=== PATIENT | female | born 1925 | race Caucasian/White ===

== ENCOUNTER → 2016-06-02 | Outpatient (CLI) | payer BC ==
[~2016-06-02] MED LIST: ACET-1256 PO; ACET325T96 PO; ASPI81TA28 PO; CEPH500C PO; CHOL20007 PO; CIPR0.3S OP; COEN1CAP28 PO; DFL100 PO; DOCU100C PO; HYDR2.5C37 TOP; IBUP-1050 PO; LEVO1TAB35 PO; LISI-729 PO; LPT/40 PO; NITR0.4S UT; POLY335019 PO; PSYL48.59 PO; SYN50 PO; VNTHFA/IN INH
== END | disposition home or self-care (01) ==
LOC: C.LABFOXMH 09:21
PROVIDERS: ATTEND Internal Medicine
DX: E78.00 Pure hypercholesterolemia, unspecified (principal)

== ENCOUNTER → 2016-07-22 | Outpatient (CLI) | payer BC ==
[2016-07-22 09:28] LABS: HEMATOCRIT 40.2 % (37-47); MEAN CELL VOLUME 94.4 fL (80-100); MEAN CORPUSCULAR HEMOGLOBIN 32.4 pg (25-34); MEAN CORPUSCULAR HGB CONC 34.3 g/dl (32-36); PLATELET COUNT 280 K/uL (130-400); RED BLOOD COUNT 4.26 M/uL (4.2-5.4); WHITE BLOOD COUNT 5.36 K/uL (4.8-10.8)
[2016-07-22 09:34] LABS: BLOOD UREA NITROGEN 13 mg/dl (7-18); GLUCOSE 88 mg/dl (70-99)
[2016-07-22 09:35] LABS: CALCIUM 9.3 mg/dl (8.5-10.1); CARBON DIOXIDE 28 mmol/L (21-32); CHLORIDE 106 mmol/L (98-107); POTASSIUM 4.2 mmol/L (3.5-5.1); SODIUM 140 mmol/L (136-145)
[2016-07-22 09:37] LABS: PROTHROMBIN TIME (PATIENT) 10.3 SECONDS (9.0-12.0)
== END | disposition home or self-care (01) ==
LOC: C.LABFOXMH 08:55
PROVIDERS: ATTEND Internal Medicine Cardiovascular Disease
DX: Z01.818 Encounter for other preprocedural examination (principal)

== ENCOUNTER 2016-07-24 06:25 | Observation (INO) | payer BC ==
[~2016-07-24] VITALS: Ht 152.4 cm; Wt 65.6 kg
[~2016-07-24 06:25] MED LIST changes: -ACET-1256 PO; -CEPH500C PO; -CIPR0.3S OP; +CLINDAMYCIN 600 MG/54 ML D5W IV SCH; -DFL100 PO; -DOCU100C PO; -HYDR2.5C37 TOP; -IBUP-1050 PO; +LACTATED RINGER'S 1000ML 1,000 ML IV SCH; -LEVO1TAB35 PO; -POLY335019 PO; -PSYL48.59 PO
[2016-07-24] MEDS ORDERED: IBUP-1050 PO (07:03)
[2016-07-24] MEDS ORDERED: HYDR2.5C37 TOP (07:03)
[2016-07-24] MEDS ORDERED: DOCU100C PO (07:03)
[2016-07-24] MEDS ORDERED: POLY335019 PO (07:03)
[2016-07-24 07:06] VITALS: BP 176/69; PULSE 59; TEMP 36.5; O2SAT 95; BMI 27.0
[2016-07-24] MEDS ORDERED: LIDOCAINE HCL 1% 20 ML VIAL ONE ×2 (07:40→10:37)
--- NOTE | 2016-07-24 09:30 | Procedure Note ---
Pre-Mod Sedation Assessment General Date of Moderate Sedation: Jul 24, 2016. Vital Signs: Vital Signs Past 12 Hours Date Time Temp Pulse Resp B/P Pulse Ox O2 Delivery O2 Flow Rate FiO2 07/24/16 07:06 36.5 59 20 176/69 95 Room Air Review Cardiovascular: regular rate, rhythm Abdomen: normal bowel sounds Lungs: lungs clear Pre-Sedation Airway Assessment Oral Cavity: WNL Smoking Status: Former Smoker Procedure Planning Contraindications-for Mod Sed: None Yes Notes The planned sedation has been discussed with the patient and consent obtained. I have identified the patient, determined the appropriateness of sedation and have assessed the patient immediately prior to the procedure. All medicine(s) and interventions are by my order.
[2016-07-24] MEDS ORDERED: MIDAZOLAM HCL 5 MG/ML 1 ML VIAL ONE (09:33)
[2016-07-24] MEDS ORDERED: FENTANYL CITRATE INJ 50 MCG/1 ML 2 ML VIAL ONE (09:33)
[2016-07-24] MEDS ORDERED: BACITRACIN OINT 0.9 GM PKT ONE (10:48)
--- NOTE | 2016-07-24 11:06 | Procedure Note ---
Post-Mod Sedation Assessment General Date of Moderate Sedation Jul 24, 2016. Vital Signs: Vital Signs Past 12 Hours Date Time Temp Pulse Resp B/P Pulse Ox O2 Delivery O2 Flow Rate FiO2 07/24/16 07:06 36.5 59 20 176/69 95 Room Air Review - Discharge Criteria Vital Signs Stable: Yes Alert/Oriented/Conversant: Yes Returned to Baseline Mental St: Yes Nausea Absent/Minimal: Yes Pain/Discomfort/Absent/Minimal: Yes Normal/Baseline Respirations: Yes Active Bleeding?: No
[2016-07-24] MEDS ORDERED: METOPROLOL TARTRATE 1 MG/ML VIAL ONE (11:07)
--- NOTE | 2016-07-24 11:08 | Cardiology Procedure Brief Nt ---
Preliminary Cardiology Note Procedure Date Jul 24, 2016. Pre-Procedure Diagnosis sick sinus syndrome Post-Procedure Diagnosis same Procedure(s) Performed Left subclavian venogram Dual chamber pacemaker implantation Loop recorder explantation [employer] Dr. Zamorano Dehydrogenation Supervisor(s) none Estimated Blood Loss 30 cc Preliminary Findings Good lead position, excellent measurements Recommendations Monitor overnight Specimens Loop recorder, return to Medtronic Anesthesia local with sedation Complication(s) None Disposition PCU
[2016-07-24] MEDS ORDERED: ACETAMINOPHEN 325 MG TAB PO PRN (11:15)
[2016-07-24] MEDS ORDERED: NITROGLYCERIN 0.4 MG SL PER TAB CHARGE UT PRN (11:15)
[2016-07-24] MEDS ORDERED: METOPROLOL SUCC 50MG EXT REL TAB PO ONE (11:45)
[2016-07-24 11:50] VITALS: BP 192/79; PULSE 60; TEMP 36.8; O2SAT 98; Ht 152.4 cm; Wt 65.6 kg
[2016-07-24] MEDS: ACETAMINOPHEN 325 MG TAB PO SCH ×3 (12:01→19:59)
[2016-07-24] MEDS: KETOROLAC TROMETHAMINE 10 MG TAB PO PRN ×2 (12:02→19:58)
[2016-07-24] MEDS ORDERED: IV FLUIDS COMPLETED PRN (12:15)
[2016-07-24 15:34] VITALS: BP 141/87; PULSE 60; O2SAT 96
[2016-07-24 16:00] VITALS: O2SAT 93
[2016-07-24] MEDS: CLINDAMYCIN IV 600 MG in DEXTROSE 5% ADD-VANTAGE 50ML 50 ML IV SCH ×2 (16:00→23:31)
--- NOTE | 2016-07-24 16:00 | OPERATIVE REPORT ---
DATE OF OPERATION: 07/24/2016 AMBULATORY OPERATIVE REPORT PREOPERATIVE DIAGNOSES: 1. Symptomatic bradycardia. 2. Loop recorder in place. POSTOPERATIVE DIAGNOSIS: Same. PROCEDURE: 1. Left subclavian venogram. 2. Dual chamber pacemaker implantation. 3. Loop recorder explantation. SURGEON: Marcus Zamorano M.D. ANESTHESIA: Local with sedation. HISTORY: This is an 89-year-old woman who has a history of multiple episodes of syncope spanning many years. She also has a history of coronary artery disease and coronary artery bypass surgery with normal left ventricular function. She has had extensive evaluation including event monitoring and a loop recorder was implanted 01/10/2014. She has had various episodes of syncope while the monitor has been in place, they have also been witnessed by various family members including her son who is a physician in [place] and her daughter who accompanies her to the office. It appears that she gets lightheaded and then passes out briefly, and awakes with no sequelae. She has not shown any arrhythmia on her loop recorder, but she has had a consistent low heart rate at times including heart rates in the high 30s. At one of her syncopal events, her son witnessed it and felt that her heart rate was slow, but perhaps not slow enough to trigger the event monitor and she has not been able to trigger the recorder herself. She is therefore brought to the laboratory for pacemaker implantation in hopes that her syncopal events are due to relative bradycardia. After obtaining informed consent for the procedure, she was brought to the laboratory on the morning of 07/24/2016 being n.p.o. after midnight. She was identified in the laboratory, prepped and draped in standard sterile manner for a left-sided pacemaker implantation. The left prepectoral region was anesthetized with 1% lidocaine local anesthetic and left subclavian venipuncture was attempted by percutaneous technique. Venous access was not obtained by this method, therefore, dye was injected via the left arm IV site in order to opacify the left subclavian vein. Once identified, left subclavian venipuncture was performed by percutaneous technique and a guidewire placed through the left subclavian vein into the superior vena cava. The area was further infiltrated with 1% lidocaine local anesthetic and a 5 cm incision was made parallel to the left clavicle and 2 cm below it and carried down to the anterior pectoralis fascia. A pacemaker pocket was formed by blunt dissection anterior to the pectoralis fascia and a bacitracin-soaked sponge (50,000 units in 50 mL normal saline solution) was placed in the pocket. An 8-Yoruba Medtronic introducer was placed over the guidewire into the left subclavian vein, the dilator and guidewire were removed and a bipolar active fixation steroid-tipped ventricular lead was advanced through introducer into the superior vena cava. The guidewire was placed through the introducer and introducer stripped away from lead and guidewire. Another 8-Yoruba Medtronic lead introducer was placed over the guidewire into the left subclavian vein, the dilator and guidewire were removed and a bipolar active fixation steroid-tipped atrial lead was advanced through the introducer into the superior vena cava. The guidewire was placed through the introducer and introducer stripped away from lead and guidewire. Using a curved stylette, the ventricular lead was advanced through the right ventricular outflow tract into the pulmonary artery and then using a straight stylette was positioned in the right ventricular apex. Once in position, the ventricular pacing threshold was evaluated in bipolar configuration at a pulse width of 0.4 milliseconds. The final pacing threshold was 0.4 volts, 5-volt lead impedance was 810 ohms and R-waves were sensed at 25.2 millivolts. Diaphragmatic pacing was not present with a 10 volt bipolar output. The atrial lead was positioned in the region of the atrial appendage and the screw extended fixing the lead in position. Atrial pacing threshold was evaluated in bipolar configuration at a pulse width of 0.4 milliseconds. Pacing threshold was 0.8 volts, 5-volt lead impedance was 655 ohms and P-waves were sensed at 1.8 millivolts. Diaphragmatic pacing was not present with a 10 volt bipolar output. Once leads were in position, they were attached to the anterior pectoralis fascia using 2 sutures of 2-0 silk around each lead collar. The bacitracin-soaked sponge was removed from the pocket, the guidewire was removed from left subclavian vein and hemostasis was obtained. The pacemaker (Biotronik Eluna) was attached to the leads and found to be functioning normally. It was placed in the pocket with the leads coiled beneath it and the incision was closed with a running double subcutaneous closure of 3-0 V-Loc absorbable suture. The skin was then closed with a running subcuticular closure of 4-0 V-Loc absorbable suture. Bacitracin ointment was placed on the incision and a pressure dressing applied. Once the incision was closed for the pacemaker implantation, the loop recorder site was anesthetized with 1% lidocaine local anesthetic and a 1.5 cm incision was made and carried down to the loop recorder. The loop recorder was dissected free of tissue and explanted. This incision was closed with a subcutaneous closure of 4-0 V-Loc absorbable suture followed by a running subcuticular closure of 4-0 V-Loc absorbable suture. Pressure dressing was applied. The patient tolerated the procedure well, there were no complications and estimated blood loss was 30 mL. The patient was transferred to the telemetry unit for monitoring. The atrial lead is a Biotronik Solia S45, serial #[id number] and is a bipolar active fixation steroid-tipped, MRI compatible pacing lead. The ventricular lead is a Biotronik Solia S53, serial #[id number] and is a bipolar active fixation steroid-tipped MRI compatible atrial lead. The pacemaker is a Biotronik Eluna 8DR-T, serial #[id number]. The device was reprogrammed in the laboratory to final settings. JUAN
[2016-07-24 19:12] VITALS: BP 152/82; PULSE 59; TEMP 36.9; O2SAT 94
[2016-07-24 23:47] VITALS: BP 159/83; PULSE 60; TEMP 36.8; O2SAT 94
[2016-07-25] MEDS: KETOROLAC TROMETHAMINE 10 MG TAB PO PRN (03:14)
[2016-07-25 03:21] VITALS: BP 174/79; PULSE 60; TEMP 36.8; O2SAT 94
[2016-07-25 04:06] VITALS: BP 167/85
--- NOTE | 2016-07-25 06:38 | DIAGNOSTIC IMAGING REPORT ---
CHEST 2 VIEWS ROUTINE CLINICAL HISTORY: Chest x-ray status post pacemaker placement COMPARISON STUDY: 12/25/2015 FINDINGS: There are postsurgical changes of midline sternotomy. There is a left subclavian dual-chamber central venous pacemaker present. No pneumothorax is visualized. The heart is normal in size. There is interstitial thickening of the lung bases. There is no lobar consolidation. No pleural effusions are visualized.[Advanced degenerative changes are present within the shoulders. IMPRESSION: No evidence of pneumothorax status post placement of a left subclavian dual-chamber central venous pacemaker. Electronically signed by: Víctor Steinberg M.D. 07/25/2016 6:36 AM Dictated Date/Time: 07/25/2016 6:34 AM
[2016-07-25 07:45] VITALS: BP 177/80; PULSE 60; TEMP 37.1; O2SAT 90
[2016-07-25] MEDS: CLINDAMYCIN IV 600 MG in DEXTROSE 5% ADD-VANTAGE 50ML 50 ML IV SCH ×2 (08:00→09:22)
--- NOTE | 2016-07-25 08:51 | Discharge Instructions ---
Discharge Instructions Date of Service Jul 25, 2016. Admission Symptomatic Bradycardia Discharge Discharge Diagnosis / Problem: S/P Dual-chamber pacemaker implantation Discharge Goals Goal(s): Improve disease control Activity Recommendations Activity Limitations: as noted below . Instructions / Follow-Up Instructions / Follow-Up ACTIVITY RECOMMENDATIONS: * Do not raise affected arm over head for 2 weeks. SPECIAL CARE INSTRUCTIONS: * If bleeding occurs, apply direct pressure to area for 5 minutes. * Call your doctor if you have severe pain, fever, drainage or bleeding at site. * Keep dressing on and dry for 48 hours then remove. * Keep any scheduled doctor's appointment. * Implant Card - hand held device with website information given. SKIN IRRITATION: * You may experience some redness and/or swelling in the area where radiation was administered. If any skin irritation occurs, please contact your family physician. FOLLOW UP VISIT: 07/28/16 @ 2:00 pm for incision check Current Hospital Diet Patient's current hospital diet: AHA Diet (Heart Healthy) Discharge Diet Recommended Diet: AHA Diet (Heart Healthy) Pending Studies Studies pending at discharge: no Medical Emergencies . Who to Call and When: Medical Emergencies: If at any time you feel your situation is an emergency, please call 911 immediately. . Non-Emergent Contact Non-Emergency issues call your: [facility] . . "Provider Documentation" section prepared by Ángela Scott. . VTE Core Measure Inpt VTE Proph given/why not?: Treatment not indicated
[2016-07-25] MEDS ORDERED: ATORVASTATIN 40 MG TAB PO SCH (09:00)
[2016-07-25] MEDS ORDERED: DOCUSATE SODIUM 100 MG CAP PO SCH (09:00)
[2016-07-25] MEDS ORDERED: ASPIRIN 81 MG ECTAB PO SCH (09:00)
[2016-07-25] MEDS ORDERED: LISINOPRIL 5 MG TAB PO SCH (09:00)
[2016-07-25] MEDS ORDERED: METOPROLOL SUCC 50MG EXT REL TAB PO SCH (09:00)
[2016-07-25] MEDS: ACETAMINOPHEN 325 MG TAB PO SCH (09:22)
[2016-07-25] MEDS ORDERED: NURSING VERBAL MED ORDER ONE (10:15)
[2016-07-25] MEDS ORDERED: CLINDAMYCIN HCL 150 MG CAP PO ONE (10:15)
--- NOTE | 2016-07-25 10:59 | Discharge Summary ---
Discharge Summary Admission Date: Jul 24, 2016 at 11:13 Discharge Date: Jul 25, 2016 Discharge Disposition: Home Primary Diagnosis: Sinus bradycardia Secondary Diagnoses/Problems: Medical Problems: (1) Palpitations Status: Acute Surgical Problems: (1) S/P quadruple vessel bypass Status: Resolved Procedures: Loop recorder explantation. Dual-chamber pacemaker implantation. Discharge Instructions Last Recorded Wt (Kilograms): 65.600 Activity Recommendations: limitations as noted below Allergies: Coded Allergies: Penicillins (Verified Allergy, Unknown, UNKNOWN, 07/25/16) Additional Instructions: ACTIVITY RECOMMENDATIONS: * Do not raise affected arm over head for 2 weeks. SPECIAL CARE INSTRUCTIONS: * If bleeding occurs, apply direct pressure to area for 5 minutes. * Call your doctor if you have severe pain, fever, drainage or bleeding at site. * Keep dressing on and dry for 48 hours then remove. * Keep any scheduled doctor's appointment. * Implant Card - hand held device with website information given. SKIN IRRITATION: * You may experience some redness and/or swelling in the area where radiation was administered. If any skin irritation occurs, please contact your family physician. FOLLOW UP VISIT: Keep any scheduled doctor appointments. Special Care: Call your doctor if: * Temperature above 101 degrees * Pain not relieved by pain medicine ordered * There is increased drainage or redness from any incision * You have any unanswered questions or concerns. Avoid all tobacco products. If you need help to stop smoking, call [place]'s FREE QUITLINE at . This is a free call. Admission HPI This is an 89-year-old woman who has a history of multiple episodes of syncope spanning many years. She also has a history of coronary artery disease and coronary artery bypass surgery with normal left ventricular function. She has had extensive evaluation including event monitoring and a loop recorder was implanted 01/10/2014. She has had various episodes of syncope while the monitor has been in place, they have also been witnessed by various family members including her son who is a physician in [place] and her daughter who accompanies her to the office. It appears that she gets lightheaded and then passes out briefly, and awakes with no sequelae. She has not shown any arrhythmia on her loop recorder, but she has had a consistent low heart rate at times including heart rates in the high 30s. At one of her syncopal events, her son witnessed it and felt that her heart rate was slow, but perhaps not slow enough to trigger the event monitor and she has not been able to trigger the recorder herself. She is therefore brought to the laboratory for pacemaker implantation in hopes that her syncopal events are due to relative bradycardia. Admission Physical Exam Constitutional: Alert, cooperative and in no distress. HEENT: Unremarkable Neck: No jugular venous distention, carotid pulses are normal and equal bilaterally without bruits. Pulmonary: Clear to auscultation bilaterally. Cardiac: Regular rhythm with no murmur, gallop or rub. Abdomen: Soft, nontender with normal bowel sounds. Extremities: No edema. Distal pulses intact. Neurologic: No focal findings. Gait is steady. Skin: The device site is well-healed without erythema, swelling or tenderness. No rash, ecchymoses or petechiae. Hospital Course Patient is an 89-year-old female with symptomatic bradycardia documented by loop recorder who underwent loop recorder explantation and dual-chamber pacemaker implantation with Dr. Zamorano on 07/24/16. She tolerated the procedure well. Device check the following day showed excellent sensing and pacing characteristics. CXR showed good lead placement and no evidence of pneumothorax. She was deemed stable for discharge home on 07/25/16. She will have follow-up in 3 days for incision check and in 1 month for device check. Total time spent on discharge = This includes examination of the patient, discharge planning, medication reconciliation, and communication with other providers.
[2016-07-25 11:03] VITALS: BP 177/80; PULSE 60; TEMP 37.1; O2SAT 90
--- NOTE | 2016-07-26 07:07 | Cardiology Follow-Up ---
Subjective Date of Service: Jul 25, 2016. Pt evaluation today including: conversation w/ patient, conversation w/ family , physical exam, lab review, review of studies, review of inpatient medication list History of Present Illness Patient feels well postop day #1 after pacemaker implantation. No significant discomfort. Social History Smoking Status: Never Smoker History of Alcohol Use: Yes (occasional beer) Review of Systems Respiratory: No shortness of breath Cardiac: No chest pain Objective Last Recorded Weight-Kilograms: 65.600 Physical Exam Constitutional: Level of Distress: NAD Lungs: Auscultation: breath sounds normal Cardiovascular: Heart Auscultation: RRR, no rubs Pacemaker site is clean and dry, no drainage. Slight hematoma and ecchymosis present. Minimal tenderness. Data Imaging: Chest x-ray shows good lead position, no pneumothorax EKG: Atrial pacing throughout, intact AV conduction. Telemetry reviewed: Appropriate pacemaker function, predominantly atrial pacing. Pacemaker evaluation: Excellent pacing and sensing characteristics. Atrial pacing 97% of the time appropriately. Assessment and Plan #1. Postop day #1: Doing well postop day #1. The site looks good with minor ecchymosis and a slight hematoma which should resolve. The pacer is functioning well and leads look good on x-ray. Stable for discharge for outpatient surgical follow-up. #2. Hypertension: Her blood pressure has been quite elevated, she could not tolerate beta blockers in the past however now with the pacemaker in place she should be able to tolerate them as she is almost entirely atrially paced. We will continue metoprolol as an outpatient. Procedures: Loop recorder explantation. Dual-chamber pacemaker implantation.
[2016-11-22] MEDS ORDERED: ACET-1256 PO (21:29)
[2016-11-22] MEDS ORDERED: CEPH500C PO (21:40)
[2016-11-22] MEDS ORDERED: CIPR0.3S OP (21:40)
[2016-11-24] MEDS ORDERED: DFL100 PO (12:49)
== END 2016-07-25 13:23 | disposition home or self-care (01) ==
LOC: ENRESERVDT → ENRESERVTM → C.ACU 06:25 → C.2T 11:13
PROVIDERS: ADMIT Internal Medicine Cardiovascular Disease; ATTEND Internal Medicine Cardiovascular Disease
DX: R00.1 Bradycardia, unspecified (principal); Z95.818 Presence of other cardiac implants and grafts; R55 Syncope and collapse; I25.10 Atherosclerotic heart disease of native coronary artery without angina pectoris; I10 Essential (primary) hypertension; I73.9 Peripheral vascular disease, unspecified; Z95.1 Presence of aortocoronary bypass graft; Z86.718 Personal history of other venous thrombosis and embolism; Z86.018 Personal history of other benign neoplasm; Z98.49 Cataract extraction status, unspecified eye; Z88.0 Allergy status to penicillin; Z90.710 Acquired absence of both cervix and uterus; Z98.890 Other specified postprocedural states; Z79.82 Long term (current) use of aspirin; Z79.899 Other long term (current) drug therapy

== ENCOUNTER 2016-07-30 14:17 | Emergency (ER) | payer BC ==
[~2016-07-30] VITALS: Ht 152.4 cm; Wt 64.0 kg
[~2016-07-30 14:17] MED LIST changes: -CLINDAMYCIN 600 MG/54 ML D5W IV SCH; +DOCU100C PO; +HYDR2.5C37 TOP; +IBUP-1050 PO; -LACTATED RINGER'S 1000ML 1,000 ML IV SCH; +POLY335019 PO; -SYN50 PO; -VNTHFA/IN INH
[2016-07-30 14:23] VITALS: Ht 152.4 cm; Wt 64.0 kg
--- NOTE | 2016-07-30 14:45 | EMERGENCY ROOM VISIT NOTE ---
History Report prepared by Parmjit: Alejandro Pierre Under the Supervision of: Dr. Ranulfo Avilez D.O. First contact with patient: 14:26 Chief Complaint: SHORTNESS OF BREATH Stated Complaint: SOB/DIZZY [facility] Nursing Triage Summary: pt to the ED from [facility] office via EMS with c/o SOB there but since EMS arrival it has resolved and pt c/o feeling tired shakey. no c/o pain pt had pacemaker placed 1 week ago and has extensive bruising to the left upper chest History of Present Illness The patient is an 89 year old female who presents to the Emergency Room via EMS from [facility] with complaints of resolved dizziness that started prior to arrival this morning. She had a pacemaker placed 6 days ago, and has been recovering from that and using Tylenol for the pain. The patient notes that she has been shaky for the past week when first waking up in the mornings, but the shakiness is usually quickly resolved after eating breakfast. Today, the patient says that she woke up shaky as per usual, but the shakiness persisted for a few hours. While walking to the [facility] with her walker, she started to feel dizzy, hot, sweaty, and very thirsty. The patient does note that she has had a bit of shortness of breath on exertion today as well. She decided to go to the [facility] and saw a nurse practitioner there, who sent the patient here for evaluation. Currently, the patient says that she feels fine but is still thirsty. Her symptoms have mostly resolved. She denies any chest pain, abdominal pain, current shortness of breath, nausea, vomiting, fevers, or leg swelling. Source of History: patient Onset: Prior to arrival this morning Position: other (global - dizziness) Timing: resolved Associated Symptoms: + SOB (denies current sob), + diaphoresis, No abdominal pain, No chest pain, No fevers, No nausea, No vomiting Note: Associated symptoms: Shaky, thirsty, hot this morning. Denies leg swelling. Review of Systems See HPI for pertinent positives & negatives. A total of 10 systems reviewed and were otherwise negative. Past Medical & Surgical Surgical Problems: (1) S/P quadruple vessel bypass Family History Family history omitted secondary to patient's advanced age. Social History Smoking Status: Former Smoker Alcohol Use: none Drug Use: none Marital Status: single Housing Status: assisted living Occupation Status: retired Current/Historical Medications Scheduled Atorvastatin (Lipitor), 40 MG PO QAM Cholecalciferol (Vitamin D3), 2,000 UNIT PO DAILY Coenzyme Q10 (Ubidecarenone) (Co Q10), 200 MG PO BID Docusate Sodium (Stool Softener), 100 MG PO DAILY Hydrocortisone 2.5% (Rectal) (Anusol-Hc 2.5%), 1 APPLN TOP BID Ibuprofen (Advil), 200 MG PO DIRECTED Levofloxacin (Levaquin), 750 MG PO DAILY Lisinopril (Zestril), 5 MG PO QAM Nitroglycerin (Nitrostat), 0.4 MG UT PRN Scheduled PRN Acetaminophen Tab (Tylenol), 325 MG PO QID PRN for Pain Psyllium (Metamucil), 1 DOSE PO DAILY PRN for Constipation Allergies Coded Allergies: Penicillins (Verified Allergy, Unknown, UNKNOWN, 07/30/16) Physical Exam Vital Signs Date Time Temp Pulse Resp B/P Pulse Ox O2 Delivery O2 Flow Rate FiO2 07/30/16 19:54 84 18 207/146 93 Room Air 07/30/16 19:11 81 20 211/117 100 Room Air 07/30/16 18:43 36.4 84 22 173/99 07/30/16 17:23 69 15 189/81 96 Room Air 07/30/16 15:59 64 16 148/90 98 Room Air 07/30/16 14:52 70 07/30/16 14:50 97 Room Air 07/30/16 14:23 36.5 68 16 191/66 95 Room Air Physical Exam GENERAL: Patient is awake, alert, and in no acute distress. Patient is resting comfortably and showing no signs of anxiety EYES: The conjunctivae are clear. The pupils are round and reactive. EARS, NOSE, MOUTH AND THROAT: The nose is without any evidence of any deformity. Mucous membranes are moist tongue is midline NECK: The neck is nontender and supple. RESPIRATORY: Normal respiratory effort is noted there is no evidence of wheezing rhonchi or rales CARDIOVASCULAR: Regular rate and rhythm noted there no murmurs rubs or gallops normal S1 normal S2 GASTROINTESTINAL: The abdomen is soft. Bowel sounds are present in all quadrants. Abdomen is nontender MUSCULOSKELETAL/EXTREMITIES: There is no evidence of gross deformity full range of motion is noted in the hips and shoulders SKIN: Significant ecchymosis and swelling over left breast at recent pacemaker insertion site. No erythema or dehiscence appreciated. Pulses symmetric in both upper extremities. NEUROLOGIC: Patient is awake alert and oriented x3 . Medical Decision & Procedures ER Provider Diagnostic Interpretation: X-ray results as stated below per interpretation by me and the radiologist. SINGLE VIEW CHEST CLINICAL HISTORY: Atypical chest pain. FINDINGS: An AP, portable, upright chest radiograph is compared to study dated 07/25/2016. The examination is degraded by portable technique and patient rotation. A 2-lead cardiac pacemaker is unchanged in position and partially obscures the left lung base. The patient is status post midline sternotomy. The heart is enlarged and there is atherosclerotic calcification of the thoracic aorta. The pulmonary vasculature is noncongested. Chronic interstitial thickening is unchanged from previous. There is patchy airspace consolidation at the left lung base. The right lung appears clear noting basilar atelectasis. No large pleural effusion or pneumothorax is seen. The skeletal structures are osteopenic. Advanced arthritic change is noted in the shoulders. Surgical clips are seen in the left lower neck. IMPRESSION: 1. Cardiomegaly and cardiac pacemaker. There is no radiographic evidence of congestive failure. 2. There is patchy airspace consolidation at the left lung base, new from 07/25/2016. Correlate clinically for evidence of developing pneumonia/aspiration pneumonitis. Radiographic follow-up to resolution is recommended. Electronically signed by: Macario Mathews M.D. 07/30/2016 3:05 PM Dictated Date/Time: 07/30/2016 3:03 PM Laboratory Results 07/30/16 14:45 Red Blood Count 4.33, Mean Corpuscular Volume 94.5, Mean Corpuscular Hemoglobin 31.2, Mean Corpuscular Hemoglobin Concent 33.0, Mean Platelet Volume 9.4, Neutrophils (%) (Auto) 72.4, Lymphocytes (%) (Auto) 17.0, Monocytes (%) (Auto) 8.5, Eosinophils (%) (Auto) 1.4, Basophils (%) (Auto) 0.5, Neutrophils # (Auto) 4.79, Lymphocytes # (Auto) 1.12, Monocytes # (Auto) 0.56, Eosinophils # (Auto) 0.09, Basophils # (Auto) 0.03 07/30/16 14:45 Test 07/30/16 14:45 White Blood Count 6.60 K/uL (4.8-10.8) Red Blood Count 4.33 M/uL (4.2-5.4) Hemoglobin 13.5 g/dL (12.0-16.0) Hematocrit 40.9 % (37-47) Mean Corpuscular Volume 94.5 fL (80-100) Mean Corpuscular Hemoglobin 31.2 pg (25-34) Mean Corpuscular Hemoglobin Concent 33.0 g/dl (32-36) Platelet Count 290 K/uL (130-400) Mean Platelet Volume 9.4 fL (7.4-10.4) Neutrophils (%) (Auto) 72.4 % Lymphocytes (%) (Auto) 17.0 % Monocytes (%) (Auto) 8.5 % Eosinophils (%) (Auto) 1.4 % Basophils (%) (Auto) 0.5 % Neutrophils # (Auto) 4.79 K/uL (1.4-6.5) Lymphocytes # (Auto) 1.12 K/uL (1.2-3.4) Monocytes # (Auto) 0.56 K/uL (0.11-0.59) Eosinophils # (Auto) 0.09 K/uL (0-0.5) Basophils # (Auto) 0.03 K/uL (0-0.2) RDW Standard Deviation 47.3 fL (36.4-46.3) RDW Coefficient of Variation 13.6 % (11.5-14.5) Immature Granulocyte % (Auto) 0.2 % Immature Granulocyte # (Auto) 0.01 K/uL (0.00-0.02) Prothrombin Time 10.0 SECONDS (9.0-12.0) Prothromb Time International Ratio 0.9 (0.9-1.1) Activated Partial Thromboplast Time 25.7 SECONDS (21.0-31.0) Partial Thromboplastin Ratio 1.0 Anion Gap 5.0 mmol/L (3-11) Est Creatinine Clear Calc Drug Dose 38.2 ml/min Estimated GFR () 70.9 Estimated GFR (Non- 61.2 BUN/Creatinine Ratio 9.9 (10-20) Calcium Level 9.4 mg/dl (8.5-10.1) Total Bilirubin 0.4 mg/dl (0.2-1) Direct Bilirubin < 0.1 mg/dl (0-0.2) Aspartate Amino Transf (AST/SGOT) 17 U/L (15-37) Alanine Aminotransferase (ALT/SGPT) 24 U/L (12-78) Alkaline Phosphatase 58 U/L (45-117) Total Creatine Kinase 71 U/L (26-192) Creatine Kinase MB 2.0 ng/ml (0.5-3.6) Creatine Kinase MB Ratio 2.8 (0-3.0) Troponin I < 0.015 ng/ml (0-0.045) Total Protein 8.3 gm/dl (6.4-8.2) Albumin 3.7 gm/dl (3.4-5.0) Lipase 191 U/L (73-393) Laboratory results per my review. Medications Administered Medications (Trade) Dose Ordered Sig/Brandon Route Start Time Stop Time Status Last Admin Dose Admin Acetaminophen (Tylenol Tab) 1,000 mg STK-MED ONCE PO 07/30/16 15:08 07/30/16 15:09 DC 07/30/16 15:04 1,000 MG Levofloxacin (Levaquin Tab) 750 mg NOW STAT PO 07/30/16 16:22 07/30/16 16:23 DC 07/30/16 16:43 750 MG Lorazepam (Ativan Tab) 0.5 mg NOW STAT SL 07/30/16 18:39 07/30/16 18:40 DC 07/30/16 18:51 0.5 MG ECG Indication: chest pain Rate (beats per minute): 68 Rhythm: other (atrial paced rhythm) Findings: T-wave inversion (Inferior), other (no PVCs, no kaw beats appreciated) Change: no significant change (from July 24 2016) ED Course 1432: The patient was evaluated in room A10. A complete history and physical examination were performed. 1622: Ordered Levaquin Tab 750 mg PO. 1623: Upon reevaluation, the patient is resting comfortably. I discussed the results and treatment plan with her. She verbalized agreement of the treatment plan. She will be discharged home. 1712: I discussed the patient with Dr. Zamorano - [facility] cardiology - he is fine with following up with the patient as an outpatient. Medical Decision Prior records/ancillary studies reviewed. Triage Nursing notes reviewed. Differential diagnosis: Etiologies such as cardiac ischemia, aortic dissection, pulmonary embolism, pneumonia, pneumothorax, musculoskeletal, infections, pericarditis, myocarditis , esophageal rupture, gastrointestinal, as well as others were entertained. The patient is an 89-year-old female who presented to the emergency department for an evaluation. The patient was unsure if she was having anxiety but she felt very warm at times. This caused her to be very anxious but she also describes chest pain over the left breast. She is one-week status post pacemaker insertion. The insertion site appears well healing but she does have a very large hematoma over her left breast. The patient's pain appeared to be reproducible. I discussed the patient's laboratory and radiographic studies with her. Her chest x-ray appeared to be consistent with a possible left lower lobe infiltrate. I'm unsure if this represents a true pneumonia or the effects of the hematoma on her left breast. I discussed her case with her primary preventive maintenance coordinator. The patient was started on antibiotic. She was encouraged to rest and avoid any strenuous activity. She was also encouraged to follow-up with her primary care physician for further evaluation. She was also encouraged to continue all medications as prescribed and return to the emergency department immediately if symptoms change worsen or the need arises. Consults Time Called: 1700 Consulting Physician: Dr. Jaun JANE cardiology Returned Call: 1712 I discussed the patient with Dr. Jaun JANE cardiology - he is fine with following up with the patient as an outpatient. Impression Primary Impression: Chest pain Additional Impressions: Hematoma PNA (pneumonia) Scribe Attestation The scribe's documentation has been prepared under my direction and personally reviewed by me in its entirety. I confirm that the note above accurately reflects all work, treatment, procedures, and medical decision making performed by me. Departure Information Dispostion Home / Self-Care Prescriptions Levofloxacin (Levaquin) 750 Mg Tab 750 MG PO DAILY, #5 TAB Prov: Ranulfo Avilez, 07/30/16 Referrals Matias Lucas M.D. (PCP) Forms HOME CARE DOCUMENTATION FORM, IMPORTANT VISIT INFORMATION Patient Instructions ED Chest Pain Atypical Unkn Cause, ED Hematoma, My [facility] Additional Instructions Follow-up with your family this week for reevaluation. Avoid any heavy lifting or strenuous activity. Follow-up with your preventive maintenance coordinator as scheduled. Continue all medications as prescribed. Problem Qualifiers Primary Impression: Chest pain Chest pain type: unspecified Qualified Codes: R07.9 - Chest pain, unspecified Additional Impressions: PNA (pneumonia) Pneumonia type: due to unspecified organism Laterality: unspecified laterality Lung location: unspecified part of lung Qualified Codes: J18.9 - Pneumonia, unspecified organism
[2016-07-30 14:50] VITALS: O2SAT 97
[2016-07-30] MEDS ORDERED: NURSING VERBAL MED ORDER ONE (15:00)
[2016-07-30 15:07] LABS: BASO % 0.5 %; BASO ABS # 0.03 K/uL (0-0.2); COMPLETE YES; EOS % 1.4 %; HEMATOCRIT 40.9 % (37-47); IG% 0.2 %; LYMPH ABS # 1.12 K/uL (1.2-3.4); MEAN CELL VOLUME 94.5 fL (80-100); MEAN CORPUSCULAR HEMOGLOBIN 31.2 pg (25-34); MEAN PLATELET VOLUME 9.4 fL (7.4-10.4); MONO % 8.5 %; NEUT % 72.4 %; PLATELET COUNT 290 K/uL (130-400); RED BLOOD COUNT 4.33 M/uL (4.2-5.4)
--- NOTE | 2016-07-30 15:07 | DIAGNOSTIC IMAGING REPORT ---
SINGLE VIEW CHEST CLINICAL HISTORY: Atypical chest pain. FINDINGS: An AP, portable, upright chest radiograph is compared to study dated 07/25/2016. The examination is degraded by portable technique and patient rotation. A 2-lead cardiac pacemaker is unchanged in position and partially obscures the left lung base. The patient is status post midline sternotomy. The heart is enlarged and there is atherosclerotic calcification of the thoracic aorta. The pulmonary vasculature is noncongested. Chronic interstitial thickening is unchanged from previous. There is patchy airspace consolidation at the left lung base. The right lung appears clear noting basilar atelectasis. No large pleural effusion or pneumothorax is seen. The skeletal structures are osteopenic. Advanced arthritic change is noted in the shoulders. Surgical clips are seen in the left lower neck. IMPRESSION: 1. Cardiomegaly and cardiac pacemaker. There is no radiographic evidence of congestive failure. 2. There is patchy airspace consolidation at the left lung base, new from 07/25/2016. Correlate clinically for evidence of developing pneumonia/aspiration pneumonitis. Radiographic follow-up to resolution is recommended. Electronically signed by: Macario Mathews M.D. 07/30/2016 3:05 PM Dictated Date/Time: 07/30/2016 3:03 PM
[2016-07-30] MEDS ORDERED: ACETAMINOPHEN 500 MG TAB PO ONE (15:08)
[2016-07-30 15:27] LABS: INR 0.9 (0.9-1.1)
[2016-07-30 15:29] LABS: CALCIUM 9.4 mg/dl (8.5-10.1)
[2016-07-30] MEDS ORDERED: PSYL48.59 PO (15:41)
[2016-07-30 15:56] LABS: ALKALINE PHOSPHATASE 58 U/L (45-117); ALT/SGPT 24 U/L (12-78); AST/SGOT 17 U/L (15-37); BLOOD UREA NITROGEN 8 mg/dl (7-18); BUN/CREATININE RATIO 9.9 (10-20); CARBON DIOXIDE 28 mmol/L (21-32); CHLORIDE 104 mmol/L (98-107); CKMB/CK RATIO 2.8 (0-3.0); CREATININE 0.85 mg/dl (0.60-1.20); GLUCOSE 114 mg/dl (70-99); POTASSIUM 3.8 mmol/L (3.5-5.1); SODIUM 137 mmol/L (136-145)
[2016-07-30] MEDS ORDERED: LEVOFLOXACIN 250 MG TAB PO STA (16:22)
[2016-07-30] MEDS ORDERED: LEVO1TAB35 PO (17:16)
[2016-07-30] MEDS ORDERED: LORAZEPAM 0.5 MG TAB SL STA (18:39)
[2016-07-30 18:43] VITALS: TEMP 36.4
[2016-07-30 19:54] VITALS: BP 207/146; PULSE 84; O2SAT 93
[2016-11-22] MEDS ORDERED: ACET-1256 PO (21:29)
[2016-11-22] MEDS ORDERED: CIPR0.3S OP (21:40)
[2016-11-22] MEDS ORDERED: CEPH500C PO (21:40)
[2016-11-24] MEDS ORDERED: DFL100 PO (12:49)
== END 2016-07-30 20:16 | disposition home or self-care (01) ==
LOC: C.EDA 14:17 → EDBD 14:17 → C.EDA 20:16
DX: R07.9 Chest pain, unspecified (principal); J18.9 Pneumonia, unspecified organism; R06.02 Shortness of breath; L76.32 Postprocedural hematoma of skin and subcutaneous tissue following other procedure; Z95.0 Presence of cardiac pacemaker

== ENCOUNTER → 2016-08-04 | Outpatient (CLI) | payer BC ==
[~2016-08-04] MED LIST changes: +ACET-1256 PO; -ASPI81TA28 PO; +CEPH500C PO; +CIPR0.3S OP; +DFL100 PO; +LEVO1TAB35 PO; -POLY335019 PO; +PSYL48.59 PO
[2016-08-04 09:37] LABS: HEMATOCRIT 37.8 % (37-47); MEAN CELL VOLUME 94.3 fL (80-100); MEAN CORPUSCULAR HEMOGLOBIN 32.2 pg (25-34); MEAN CORPUSCULAR HGB CONC 34.1 g/dl (32-36); MEAN PLATELET VOLUME 9.4 fL (7.4-10.4); PLATELET COUNT 325 K/uL (130-400); RED BLOOD COUNT 4.01 M/uL (4.2-5.4)
[2016-08-04 09:46] LABS: BLOOD UREA NITROGEN 8 mg/dl (7-18); BUN/CREATININE RATIO 11.1 (10-20); CALCIUM 8.8 mg/dl (8.5-10.1); CARBON DIOXIDE 28 mmol/L (21-32); CHLORIDE 102 mmol/L (98-107); CREATININE 0.68 mg/dl (0.60-1.20); GLUCOSE 89 mg/dl (70-99); POTASSIUM 3.8 mmol/L (3.5-5.1); SODIUM 137 mmol/L (136-145)
== END | disposition home or self-care (01) ==
LOC: C.LABFOXDH 09:06
PROVIDERS: ATTEND Internal Medicine
DX: R53.1 Weakness (principal)

== ENCOUNTER → 2016-08-29 | Outpatient (CLI) | payer BC ==
--- NOTE | 2016-08-29 14:45 | DIAGNOSTIC IMAGING REPORT ---
LUMBAR SPINE CT CT DOSE: 479.32 mGycm HISTORY: Back pain. Radiculopathy. BACK PAIN, GOES DOWN RT LEG X 4 WEEKS TECHNIQUE: Multiaxial CT images of the lumbar spine were performed and reformatted in the sagittal and coronal plane without the use of contrast. COMPARISON: None. FINDINGS: Findings of a scoliosis. Considerable degenerative disc changes throughout. Vacuum discs impression all levels of the lumbar spine. No compression deformity. L1-L2: Mild broad-based disc bulge. Mild/moderate narrowing right neuroforamina. Degenerative change posterior elements. L2-L3 mild multifactorial narrowing of the spinal canal. Broad-based bulging disc. Moderate narrowing of the neuroforamina bilaterally. L3-L4 minimal broad-based disc bulge. Mild multifactorial narrowing of the spinal canal. Mild narrowing of the neuroforamina bilaterally. L4-L5 moderate multifactorial narrowing of the spinal canal. Mild broad-based disc herniation. Moderate narrowing of the neuroforamina bilaterally. L5-S1 mild broad-based disc bulge. Mild narrowing of spinal canal. No foramina patent bilaterally. IMPRESSION: 1. Scoliosis. 2. Considerable degenerative disc change at the entire lumbar region. 3. Mild/moderate multifactorial narrowing of the spinal canal at multiple levels with moderate narrowing of several neural foramina bilaterally. 4. No evidence for a high-grade or critical component of spinal stenosis. Electronically signed by: Cuong Brower M.D. 08/29/2016 2:43 PM Dictated Date/Time: 08/29/2016 2:36 PM
== END | disposition home or self-care (01) ==
LOC: C.CTS 13:25
PROVIDERS: ATTEND Internal Medicine
DX: M54.5 Low back pain (principal); M41.9 Scoliosis, unspecified

== ENCOUNTER 2016-11-22 20:31 | Emergency (ER) | payer BC ==
[~2016-11-22] VITALS: Ht 154.9 cm; Wt 65.6 kg
[~2016-11-22 20:31] MED LIST changes: -ACET-1256 PO; -CEPH500C PO; -CIPR0.3S OP; -DFL100 PO
[2016-11-22 20:33] VITALS: TEMP 36.6; Ht 154.9 cm; Wt 65.6 kg
[2016-11-22] MEDS ORDERED: PROPARACAINE HCL 0.5% OP SOLN 15 ML BTL OP STA (20:53)
--- NOTE | 2016-11-22 21:09 | EMERGENCY ROOM VISIT NOTE ---
History Report prepared by Parmjit: Bennett Kang Under the Supervision of: Dr. Macario Grubbs M.D. First contact with patient: 20:37 Chief Complaint: EYE ASSESSMENT Stated Complaint: BILATERAL EYE REDNESS,BLURRY VISION History of Present Illness The patient is an 89 year old female who presents to the Emergency Room with complaints of constant left eye discomfort beginning yesterday morning. The patient states that she woke up, and her left eye was closed shut and erythematous. She reports that she does not know if her eye was crusted shut. The patient notes that she has been using cold compresses to alleviated the swelling. She states that she went to the health clinic at [facility] yesterday, and she was given antibiotic eye drops. She notes that she was not able to put the drops into her eyes last evening, but she has been doing better today. The patient reports that she woke up this morning and rushed into the bathroom. She notes that it was not better this morning, and she went to [facility] prior to arrival. The patient states that her vision is okay, and she typically wears glasses. She reports that she is not wearing her glasses because she has a rash on the bridge of her nose. The patient notes that she has never had this before , and she denies fevers, chills, rashes, wearing contacts, getting anything in her eye, history of a stye, itchiness, and being teary eyed. Source of History: patient Onset: yesterday morning Position: eye (left) Timing: constant Associated Symptoms: No fevers, No chills, No rash Note: Associated symptoms: erythema and edema Denies: wearing contacts, getting anything in her eye, history of a stye, itchiness, and being teary eyed. Review of Systems See HPI for pertinent positives & negatives. A total of 10 systems reviewed and were otherwise negative. Past Medical & Surgical Surgical Problems: (1) S/P quadruple vessel bypass Family History Patient reports no known family medical history. Social History Smoking Status: Former Smoker Alcohol Use: none Drug Use: none Marital Status: single Housing Status: assisted living Occupation Status: retired Current/Historical Medications Scheduled Atorvastatin (Lipitor), 40 MG PO QAM Cephalexin Monohydrate (Keflex), 500 MG PO TID Cholecalciferol (Vitamin D3), 2,000 UNIT PO DAILY Ciprofloxacin Hcl (Ophth) (Ciloxan Oph), 1 DROPS OP TID Coenzyme Q10 (Ubidecarenone) (Co Q10), 200 MG PO BID Docusate Sodium (Stool Softener), 100 MG PO Q2D Hydrocortisone 2.5% (Rectal) (Anusol-Hc 2.5%), 1 APPLN TOP BID Ibuprofen (Advil), 200 MG PO DIRECTED Lisinopril (Zestril), 5 MG PO QAM Nitroglycerin (Nitrostat), 0.4 MG UT PRN Scheduled PRN Acetaminophen (Tylenol), 500 MG PO UD PRN for Pain or Fever Allergies Coded Allergies: Penicillins (Verified Allergy, Unknown, UNKNOWN, 07/30/16) Physical Exam Vital Signs Date Time Temp Pulse Resp B/P (MAP) Pulse Ox O2 Delivery O2 Flow Rate FiO2 11/22/16 21:25 73 12 175/89 93 Room Air 11/22/16 20:33 36.6 74 16 172/84 92 Room Air Physical Exam General: Sitting on stretcher, no distress Neurological: Awake, alert, and oriented x3 HEENT: No vesicular lesions seen, left eye injection noted with some erythema and edema to the upper and lower lids. Palpable tender lesion to the upper lid consistent with a stye, mild crusting to the lashes, does not hurt to move eye [id number]. Medical Decision & Procedures Medications Administered Medications (Trade) Dose Ordered Sig/Brandon Route Start Time Stop Time Status Last Admin Dose Admin Ciprofloxacin HCl (Ciprofloxacin 0.3% Op Soln) 2 drops NOW STAT OP 11/22/16 21:19 11/22/16 21:20 DC 11/22/16 21:24 2 DROPS Cephalexin Monohydrate (Keflex Cap) 500 mg NOW STAT PO 11/22/16 21:19 11/22/16 21:20 DC 11/22/16 21:24 500 MG Procedure Slit Lamp Examination Indication:eye pain The left eye was prepped with topical proparacaine. Slit lamp examination was performed in the standard fashion. Cornea appeared clear. Anterior chamber clear. Scleral injection was present. Clear discharge present. Fluorescein examination performed and revealed no dendritic lesions or corneal abrasions. No foreign bodies noted. Negative Karen sign. The patient tolerated the procedure well without complication. The patient's visual cuity was 20/100 in the right eye and 20/50 in the left eye without her glasses. Eye pressure testing showed 16 in the right and 17 in the left. ED Course 2038: The patient was evaluated in room B06. A complete history and physical exam was performed. 2108: Refer to the procedure note for the slit lamp examination. 2118: Ordered Keflex Cap 500mg PO, Ciprofloxacin HCl 2 drops OP 2144: Reevaluated the patient. Discussed results and discharge instructions: she verbalized understanding and agreement. The patient is ready for discharge. Medical Decision The patient is an 89 year old female who presents to the ED with complaints of left eye discomfort. Differential diagnoses considered include stye, conjunctivitis, glaucoma, orbital cellulitis, shingles, corneal abrasion.. The patient presents with left eye swelling, redness and some irritation. She is using what sounds like gentamicin drops. She has tried cool compresses. She has not had visual changes but the eye is swollen and irritated. The patient was seen at [facility] and then sent here for the possibility of shingles. On my exam, there are no vesicular lesions. Slit lamp exam reveals no corneal abrasion or dendritic lesion. The anterior chamber was clear. The eye did seem injected and the upper and lower lids were swollen and there appeared to be a stye present to the upper mid lid. Eye pressure testing was normal, visual acuity was actually better in the affected eye. I think the patient has conjunctivitis and a stye along the left upper eyelid. Warm compresses were suggested. I will switch her to Cipro drops. Because of the edema and redness and the lack of improvement on the gentamicin drops, I have decided to add an oral antibiotic. She was given Cipro drops and oral Keflex here prior to discharge. She was encouraged to see an eye doctor in the next few days. Impression Primary Impression: Conjunctivitis Additional Impression: Stye Scribe Attestation The scribe's documentation has been prepared under my direction and personally reviewed by me in its entirety. I confirm that the note above accurately reflects all work, treatment, procedures, and medical decision making performed by me. Departure Information Dispostion Home / Self-Care Prescriptions Cephalexin Monohydrate (Keflex) 500 Mg Cap 500 MG PO TID for 7 Days, #21 CAP Prov: Macario Grubbs M.D. 11/22/16 Ciprofloxacin Hcl (Ophth) (CILOXAN OPH) 0.3 % Ellie 1 DROPS OP TID, #1 BTL 1 Refill Prov: Macario Grubbs M.D. 11/22/16 Referrals Steve Hurtado (PCP) Forms HOME CARE DOCUMENTATION FORM, IMPORTANT VISIT INFORMATION Patient Instructions My [facility] Additional Instructions use cipro drops to the eyes 1 drop 3x per day use keflex 3x per day for 1 week warm compresses keep the head elevated to sleep see eye doctor return for fever or worsening symptoms Problem Qualifiers
[2016-11-22] MEDS ORDERED: CIPROFLOXACIN HCL 0.3% OP SOLN 2.5 ML BTL OP STA (21:19)
[2016-11-22] MEDS ORDERED: CEPHALEXIN MONOHYDRATE 250 MG CAP PO STA (21:19)
[2016-11-22 21:25] VITALS: BP 175/89; PULSE 73; O2SAT 93
[2016-11-22] MEDS ORDERED: ACET-1256 PO ×2 (21:29)
[2016-11-22] MEDS ORDERED: CEPH500C PO ×2 (21:40)
[2016-11-22] MEDS ORDERED: CIPR0.3S OP ×2 (21:40)
[2016-11-24] MEDS ORDERED: DFL100 PO ×2 (12:49)
== END 2016-11-22 21:45 | disposition home or self-care (01) ==
LOC: C.EDB 20:32
DX: H10.9 Unspecified conjunctivitis (principal); H00.019 Hordeolum externum unspecified eye, unspecified eyelid; Z98.890 Other specified postprocedural states; Z87.891 Personal history of nicotine dependence; Z79.899 Other long term (current) drug therapy; Z88.0 Allergy status to penicillin

== ENCOUNTER 2016-11-23 11:53 | Inpatient (IN) | payer BC, OTHER ==
[~2016-11-23] VITALS: Ht 154.9 cm; Wt 65.6 kg
[~2016-11-23 11:53] MED LIST changes: +ACET-1256 PO; +CEPH500C PO; +CIPR0.3S OP
[2016-11-23] MEDS ORDERED: SODIUM CHLORIDE 0.9% 1000ML 1,000 ML IV STA (12:36)
--- NOTE | 2016-11-23 12:44 | EMERGENCY ROOM VISIT NOTE ---
History Report prepared by Parmjit: Gwen Bourgeois Under the Supervision of: Dr. Ranulfo Avilez D.O. First contact with patient: 12:28 Chief Complaint: SYNCOPE Stated Complaint: SYNCOPE Nursing Triage Summary: Pt arrived via ambulance ALS from [facility]. Pt was just in ED last evening for eye infection and possible shingles. Pt stated that she felt fine early this morning. Pt walked to breakfast and ate. One the way back to her apartment the patient has to walk up a slight hill. Pt stated that she felt strange while walking up the hill. The pt made it to her apartement. Pt stated to her friend that she felt funny. Pt was able to sit in a chair but does not remember anything. Pts friend reported to EMS that the pt passed out and possibly had a seizure. Pts friend reported that she was unresponsive for 30 sec. When EMS arrived the pt stated that she felt dizzy and was seeing blue and white lights. Pt was not found to be postictal. Pt stated that she passes out often but is not dizzy afterwards like today. Pts neuro exam is negative. History of Present Illness The patient is a 89 year old female who presents to the Emergency Room with complaints of an episode of syncope beginning just BUSINESS BANKER. The patient states that she was seen here last night fro an eye infection. She reports that she went home last night and after eating a big breakfast this morning she was walking up a slope with her walker when she began feeling very dizzy and her vision was out of focus. She reports that when she arrived back at home she had an episode of a seizure that lasted less than 30 seconds per the patient's daughter. The daughter states that she has a history of seizures but has not been worked up for them before by a physician. She notes that the patient has a history of pacemaker, quadruple bypass, and hypertension. The patient states that she is not on any new medications since yesterday and states that she last had her pacemaker interrogated 6 weeks ago. She notes that she has been eating and drinking okay. She states that after the seizure she had shortness of breath, abdominal pain, and diaphoresis. The patient denies any chest pain, current difficulty breathing, rib pain. The daughter notes that the patient did have an episode of a fall a few weeks ago. Source of History: patient Onset: just BUSINESS BANKER Position: other (global) Quality: other (syncope) Timing: other (episode) Associated Symptoms: + LOC, + diaphoresis, + SOB, + abdominal pain, No chest pain Note: Pt denies rib pain. Review of Systems See HPI for pertinent positives & negatives. A total of 10 systems reviewed and were otherwise negative. Past Medical & Surgical Medical Problems: (1) syncope and possible sz Surgical Problems: (1) S/P quadruple vessel bypass Family History Patient reports no known family medical history. Social History Smoking Status: Former Smoker Alcohol Use: none Drug Use: none Marital Status: single Housing Status: assisted living Occupation Status: retired Current/Historical Medications Scheduled Atorvastatin (Lipitor), 40 MG PO QAM Cephalexin Monohydrate (Keflex), 500 MG PO TID Cholecalciferol (Vitamin D3), 2,000 UNIT PO DAILY Ciprofloxacin Hcl (Ophth) (Ciloxan Oph), 1 DROPS OP TID Coenzyme Q10 (Ubidecarenone) (Co Q10), 200 MG PO BID Docusate Sodium (Stool Softener), 100 MG PO Q2D Hydrocortisone 2.5% (Rectal) (Anusol-Hc 2.5%), 1 APPLN TOP BID Ibuprofen (Advil), 200 MG PO DIRECTED Lisinopril (Zestril), 5 MG PO QAM Nitroglycerin (Nitrostat), 0.4 MG UT PRN Scheduled PRN Acetaminophen (Tylenol), 500 MG PO UD PRN for Pain or Fever Allergies Coded Allergies: Penicillins (Verified Allergy, Unknown, UNKNOWN, 11/23/16) Physical Exam Vital Signs Date Time Temp Pulse Resp B/P (MAP) Pulse Ox O2 Delivery O2 Flow Rate FiO2 11/23/16 17:42 81 20 190/97 97 Room Air 11/23/16 17:00 73 22 172/92 96 Room Air 11/23/16 16:55 78 11/23/16 14:26 65 18 192/93 95 Room Air 11/23/16 14:20 73 19 185/90 98 Room Air 65 192/93 72 158/89 11/23/16 12:36 97 Room Air 11/23/16 12:18 63 11/23/16 12:13 36.6 74 19 136/66 98 Room Air Physical Exam GENERAL: Patient is awake, alert, and in no acute distress. Patient is resting comfortably and showing no signs of anxiety EYES: Erythema to left upper eyelid, mild left conjunctival injection, EOMI. The pupils are round and reactive. EARS, NOSE, MOUTH AND THROAT: The nose is without any evidence of any deformity. Mucous membranes are moist tongue is midline NECK: The neck is nontender and supple. RESPIRATORY: Normal respiratory effort is noted there is no evidence of wheezing rhonchi or rales CARDIOVASCULAR: Regular rate and rhythm noted there is a systolic murmur noted , no rubs or gallops normal S1 normal S2 GASTROINTESTINAL: The abdomen is soft. Bowel sounds are present in all quadrants. Abdomen is nontender BACK: No midline tenderness or or step-off noted range of motion in flexion extension as well as rotation no signs of muscle spasm noted. No midline tenderness noted, ecchymosis over left lateral rib cage consistent with recent fall. MUSCULOSKELETAL/EXTREMITIES: There is no evidence of gross deformity full range of motion is noted in the hips and shoulders. No calf tenderness noted SKIN: There is no obvious evidence of any rash. There are no petechiae, pallor or cyanosis noted. NEUROLOGIC: Patient is awake alert and oriented x3 strength is symmetric, no facial droop noted. Medical Decision & Procedures ER Provider Diagnostic Interpretation: Radiology results as stated below per my review and radiologist interpretation: SINGLE VIEW CHEST FINDINGS: An AP, portable, upright chest radiograph is compared to study dated 07/30/2016. The examination is degraded by portable technique and patient rotation. A 2-lead cardiac pacemaker is unchanged in position and partially obscures the left lower chest. The patient is status post midline sternotomy. The heart is enlarged and there is atherosclerotic calcification of the thoracic aorta. The pulmonary vasculature is noncongested. Chronic interstitial thickening is unchanged from previous. Minimal bibasilar atelectasis is observed. The lungs and pleural spaces are otherwise clear. No pneumothorax is seen. The skeletal structures are osteopenic. Advanced arthritic change is noted in the shoulders. Surgical clips are seen in the left lower neck. IMPRESSION: 1. Cardiomegaly and cardiac pacemaker. There is no radiographic evidence of congestive failure. 2. There is no airspace consolidation or large pleural effusion. Electronically signed by: Macario Mathews M.D. 11/23/2016 1:02 PM Dictated Date/Time: 11/23/2016 1:[address] SCAN OF THE BRAIN WITHOUT IV CONTRAST FINDINGS: Brain parenchyma: There are age-related involutional changes noting moderate to advanced confluent subcortical and periventricular microangiopathic change. There is no hemorrhage, mass effect, or evidence of acute territorial ischemia by CT criteria. There is mineralization in the basal ganglia. Matthew-white matter is preserved. No extra-axial fluid collection is seen. Ventricles, sulci, cisterns: Prominent secondary to involutional change. Intracranial vasculature: There is atherosclerotic calcification of the cavernous carotid arteries. Calvarium: The skeletal structures are osteopenic. There is no depressed calvarial fracture. Sinuses and mastoids: The visualized paranasal sinuses are clear. The mastoid air cells are well pneumatized. Orbits: The bony orbits are grossly intact. There are bilateral ocular lens implants. IMPRESSION: Senescent changes as above with no hemorrhage, mass effect, or evidence of acute territorial ischemia by CT criteria. Electronically signed by: Macario Mathews M.D. 11/23/2016 3:42 PM Dictated Date/Time: 11/23/2016 3:40 PM Laboratory Results 11/23/16 14:55 Red Blood Count 4.20, Mean Corpuscular Volume 96.4, Mean Corpuscular Hemoglobin 33.1, Mean Corpuscular Hemoglobin Concent 34.3, Mean Platelet Volume 9.9, Neutrophils (%) (Auto) 78.6, Lymphocytes (%) (Auto) 14.6, Monocytes (%) (Auto) 5.9, Eosinophils (%) (Auto) 0.5, Basophils (%) (Auto) 0.2, Neutrophils # (Auto) 4.78, Lymphocytes # (Auto) 0.89, Monocytes # (Auto) 0.36, Eosinophils # (Auto) 0.03, Basophils # (Auto) 0.01 11/23/16 14:55 Test 11/23/16 13:23 11/23/16 14:55 11/23/16 15:14 Bedside Glucose 158 mg/dl (70-90) White Blood Count 6.08 K/uL (4.8-10.8) Red Blood Count 4.20 M/uL (4.2-5.4) Hemoglobin 13.9 g/dL (12.0-16.0) Hematocrit 40.5 % (37-47) Mean Corpuscular Volume 96.4 fL (80-100) Mean Corpuscular Hemoglobin 33.1 pg (25-34) Mean Corpuscular Hemoglobin Concent 34.3 g/dl (32-36) Platelet Count 301 K/uL (130-400) Mean Platelet Volume 9.9 fL (7.4-10.4) Neutrophils (%) (Auto) 78.6 % Lymphocytes (%) (Auto) 14.6 % Monocytes (%) (Auto) 5.9 % Eosinophils (%) (Auto) 0.5 % Basophils (%) (Auto) 0.2 % Neutrophils # (Auto) 4.78 K/uL (1.4-6.5) Lymphocytes # (Auto) 0.89 K/uL (1.2-3.4) Monocytes # (Auto) 0.36 K/uL (0.11-0.59) Eosinophils # (Auto) 0.03 K/uL (0-0.5) Basophils # (Auto) 0.01 K/uL (0-0.2) RDW Standard Deviation 50.3 fL (36.4-46.3) RDW Coefficient of Variation 14.3 % (11.5-14.5) Immature Granulocyte % (Auto) 0.2 % Immature Granulocyte # (Auto) 0.01 K/uL (0.00-0.02) Prothrombin Time 10.2 SECONDS (9.0-12.0) Prothromb Time International Ratio 1.0 (0.9-1.1) Activated Partial Thromboplast Time 25.2 SECONDS (21.0-31.0) Partial Thromboplastin Ratio 1.0 Anion Gap 7.0 mmol/L (3-11) Est Creatinine Clear Calc Drug Dose 41.7 ml/min Estimated GFR () 75.8 Estimated GFR (Non- 65.4 BUN/Creatinine Ratio 17.7 (10-20) Calcium Level 8.8 mg/dl (8.5-10.1) Phosphorus Level 3.4 mg/dl (2.5-4.9) Magnesium Level 2.3 mg/dl (1.8-2.4) Total Bilirubin 0.4 mg/dl (0.2-1) Direct Bilirubin 0.1 mg/dl (0-0.2) Aspartate Amino Transf (AST/SGOT) 22 U/L (15-37) Alanine Aminotransferase (ALT/SGPT) 24 U/L (12-78) Alkaline Phosphatase 62 U/L (45-117) Total Creatine Kinase 79 U/L (26-192) Creatine Kinase MB 2.0 ng/ml (0.5-3.6) Creatine Kinase MB Ratio 2.5 (0-3.0) Troponin I < 0.015 ng/ml (0-0.045) Total Protein 8.8 gm/dl (6.4-8.2) Albumin 3.8 gm/dl (3.4-5.0) Thyroid Stimulating Hormone (TSH) 1.730 uIu/ml (0.300-4.500) Urine Color YELLOW Urine Appearance CLOUDY (CLEAR) Urine pH 8.5 (4.5-7.5) Urine Specific Meeker 1.013 (1.000-1.030) Urine Protein NEG (NEG) Urine Glucose (UA) NEG (NEG) Urine Ketones NEG (NEG) Urine Occult Blood NEG (NEG) Urine Nitrite NEG (NEG) Urine Bilirubin NEG (NEG) Urine Urobilinogen NEG (NEG) Urine Leukocyte Esterase MODERATE (NEG) Urine WBC (Auto) 5-10 /hpf (0-5) Urine RBC (Auto) 5-10 /hpf (0-4) Urine Hyaline Casts (Auto) 1-5 /lpf (0-5) Urine Epithelial Cells (Auto) >30 /lpf (0-5) Urine Bacteria (Auto) NEG (NEG) Urine Yeast (Auto) BUDDING (NONE PRSENT) Laboratory results per my review. ECG Indication: syncope Rate (beats per minute): 71 Rhythm: other (atrial paced) Findings: T-wave inversion (anterior and lateral), other (no PVC) ED Course 1228: The patient was evaluated in room C11B. A complete history and physical examination were performed. 1236: NSS 1,000 ml @ 999 mls/hr IV. 1401: I reevaluated and updated the patient. 1643: I reevaluated and updated the patient. She is doing well. 1710: I discussed the patient's case with Dr. Jackson of [facility]. The patient will be evaluated for further management. 1727: Upon reevaluation, the patient is doing well. I discussed results and treatment plan with the patient. She verbalizes agreement and understanding. I spoke with Dr. Jackson of the [facility]. The patient will be evaluated for further management and care. Medical Decision Differential diagnosis: Etiologies such as vasovagal event, infection, hypoglycemia, electrolyte abnormalities, cardiac sources, intracerebral event, toxicologic, neurologic, as well as others were entertained. Nursing notes reviewed. The patient is an 89-year-old female who presented to emergency department for an evaluation of syncope. She presented with family members who state that she had a syncopal episode with exertion. The family member state that she was very diaphoretic. The patient has a pacemaker. She's been suffering with Sing to be in the past and he felt the pacemaker without help. The pacemaker was interrogated and there is no signs of wide-complex tachycardia however the device was set to trigger recording only if heart rate was over 180. This was changed to a lower heart rate. I discussed the patient's laboratory and radiographic studies with her and her family members. I was very concerned because the patient has risk factors for ischemic coronary artery disease and has an abnormal EKG. This reason I felt she may require an observation as an inpatient to rule out the possibility of wide-complex tachycardia causing nursing. I discussed the case with the on-call [facility] hospitalist. They' ve agreed to evaluate the patient in the emergency department for further management and disposition. Medication Reconcilliation Current Medication List: was personally reviewed by me Blood Pressure Screening Patient's blood pressure: Elevated blood pressure Blood pressure disposition: Elevated BP felt to be situational Consults Time Called: 1705 Consulting Physician: Dr. Jackson - [facility] Returned Call: 1710 I discussed the patient's case with Dr. Jackson of [facility]. The patient will be evaluated for further management. Impression Primary Impression: Syncope Additional Impression: Abnormal EKG Scribe Attestation The scribe's documentation has been prepared under my direction and personally reviewed by me in its entirety. I confirm that the note above accurately reflects all work, treatment, procedures, and medical decision making performed by me. Departure Information Dispostion Being Evaluated By Hospitalist Referrals Steve Hurtado (PCP) Patient Instructions My [facility] Problem Qualifiers Primary Impression: Syncope Syncope type: unspecified Qualified Codes: R55 - Syncope and collapse
--- NOTE | 2016-11-23 13:03 | DIAGNOSTIC IMAGING REPORT ---
SINGLE VIEW CHEST CLINICAL HISTORY: Weakness. Change in mental status. FINDINGS: An AP, portable, upright chest radiograph is compared to study dated 07/30/2016. The examination is degraded by portable technique and patient rotation. A 2-lead cardiac pacemaker is unchanged in position and partially obscures the left lower chest. The patient is status post midline sternotomy. The heart is enlarged and there is atherosclerotic calcification of the thoracic aorta. The pulmonary vasculature is noncongested. Chronic interstitial thickening is unchanged from previous. Minimal bibasilar atelectasis is observed. The lungs and pleural spaces are otherwise clear. No pneumothorax is seen. The skeletal structures are osteopenic. Advanced arthritic change is noted in the shoulders. Surgical clips are seen in the left lower neck. IMPRESSION: 1. Cardiomegaly and cardiac pacemaker. There is no radiographic evidence of congestive failure. 2. There is no airspace consolidation or large pleural effusion. Electronically signed by: Macario Mathews M.D. 11/23/2016 1:02 PM Dictated Date/Time: 11/23/2016 1:01 PM
[2016-11-23 15:28] LABS: URINE APPEARANCE CLOUDY (CLEAR); URINE BILIRUBIN NEG (NEG); URINE COLOR YELLOW; URINE EPITHELIAL CELL AUTO >30 /lpf (0-5); URINE NITRITE NEG (NEG); URINE PH 8.5 (4.5-7.5); URINE SPECIFIC GRAVITY 1.013 (1.000-1.030); UROBILINOGEN NEG (NEG)
[2016-11-23 15:39] LABS: MANUAL MICROSCOPIC REQUIRED? NO; REVIEW REQ? YES
[2016-11-23 15:43] LABS: BASO % 0.2 %; BASO ABS # 0.01 K/uL (0-0.2); COMPLETE YES; EOS % 0.5 %; HEMATOCRIT 40.5 % (37-47); IG% 0.2 %; LYMPH % 14.6 %; LYMPH ABS # 0.89 K/uL (1.2-3.4); MEAN CELL VOLUME 96.4 fL (80-100); MEAN CORPUSCULAR HEMOGLOBIN 33.1 pg (25-34); MEAN CORPUSCULAR HGB CONC 34.3 g/dl (32-36); MEAN PLATELET VOLUME 9.9 fL (7.4-10.4); MONO % 5.9 %; NEUT % 78.6 %; PLATELET COUNT 301 K/uL (130-400); WHITE BLOOD COUNT 6.08 K/uL (4.8-10.8)
--- NOTE | 2016-11-23 15:43 | DIAGNOSTIC IMAGING REPORT ---
CT SCAN OF THE BRAIN WITHOUT IV CONTRAST CLINICAL HISTORY: Weakness. Syncope. COMPARISON STUDY: No priors. TECHNIQUE: Unenhanced axial CT scan of the brain is performed from the vertex to the skull base. CT DOSE: 601.98 mGy.cm FINDINGS: Brain parenchyma: There are age-related involutional changes noting moderate to advanced confluent subcortical and periventricular microangiopathic change. There is no hemorrhage, mass effect, or evidence of acute territorial ischemia by CT criteria. There is mineralization in the basal ganglia. Matthew-white matter is preserved. No extra-axial fluid collection is seen. Ventricles, sulci, cisterns: Prominent secondary to involutional change. Intracranial vasculature: There is atherosclerotic calcification of the cavernous carotid arteries. Calvarium: The skeletal structures are osteopenic. There is no depressed calvarial fracture. Sinuses and mastoids: The visualized paranasal sinuses are clear. The mastoid air cells are well pneumatized. Orbits: The bony orbits are grossly intact. There are bilateral ocular lens implants. IMPRESSION: Senescent changes as above with no hemorrhage, mass effect, or evidence of acute territorial ischemia by CT criteria. Electronically signed by: Macario Mathews M.D. 11/23/2016 3:42 PM Dictated Date/Time: 11/23/2016 3:40 PM
[2016-11-23 16:00] LABS: PROTHROMBIN TIME (PATIENT) 10.2 SECONDS (9.0-12.0)
[2016-11-23 16:14] LABS: ALKALINE PHOSPHATASE 62 U/L (45-117); ALT/SGPT 24 U/L (12-78); AST/SGOT 22 U/L (15-37); BLOOD UREA NITROGEN 14 mg/dl (7-18); BUN/CREATININE RATIO 17.7 (10-20); CALCIUM 8.8 mg/dl (8.5-10.1); CARBON DIOXIDE 30 mmol/L (21-32); CHLORIDE 102 mmol/L (98-107); CKMB/CK RATIO 2.5 (0-3.0); GLUCOSE 122 mg/dl (70-99); MAGNESIUM 2.3 mg/dl (1.8-2.4); PHOSPHORUS 3.4 mg/dl (2.5-4.9); POTASSIUM 3.6 mmol/L (3.5-5.1); SODIUM 139 mmol/L (136-145)
[2016-11-23] MEDS ORDERED: PANTOprazole SOD 40 MG TAB PO STA (18:31)
[2016-11-23] MEDS ORDERED: ONDANSETRON INJ 2 MG/ML 2 ML VIAL IV PRN (18:45)
[2016-11-23] MEDS ORDERED: ACETAMINOPHEN 500 MG TAB PO PRN (18:45)
[2016-11-23] MEDS ORDERED: MAGNESIUM HYDROXIDE SUSP 30 ML UDC PO PRN (18:45)
[2016-11-23] MEDS ORDERED: ALUMINUM/MAGNESIUM/SIMETH (MAALOX MAX) 30 ML UDC PO PRN (18:45)
[2016-11-23] MEDS ORDERED: ACETAMINOPHEN 325 MG TAB PO PRN (18:45)
[2016-11-23] MEDS ORDERED: ZOLPIDEM TARTRATE 5 MG TAB PO PRN (18:45)
[2016-11-23] MEDS ORDERED: POLYETHYLENE (MIRALAX) 17 GM PACK PO PRN (18:45)
[2016-11-23] MEDS ORDERED: NITROGLYCERIN 0.4 MG SL PER TAB CHARGE UT PRN (18:45)
--- NOTE | 2016-11-23 19:02 | History and Physical ---
History & Physical Date of Service Nov 23, 2016. History & Physical syncope and possible , [id number]
[2016-11-23 19:56] VITALS: BP 179/82; PULSE 79; TEMP 36.3; Ht 154.9 cm; Wt 65.6 kg
--- NOTE | 2016-11-23 20:32 | HISTORY & PHYSICAL EXAMINATION ---
DATE OF ADMISSION: 11/23/2016 This is level 3 inpatient admission, 40 minutes. CHIEF COMPLAINT: Syncope and seizure. HISTORY OF PRESENT ILLNESS: The patient is an 89-year-old white female with a significant past medical history of heart disease which include CABG, sinus bradycardia s/p pacemaker, previous syncope, dyslipidemia, hypertension, nephrolithiasis, occlusion of carotid artery, peripheral vascular disease, coming to the hospital Emergency Department because of the above chief complaint. Per report from the medical record in the Emergency Room and also bedside from the patient and daughters. The patient was arriving to the hospital Emergency Department from [facility]. The patient was seen in the Emergency Room last night because of left eye infection. She was feeling fine until this morning. She woke up and had breakfast. On her way to her apartment, patient felt strange while walking up to hill. While arriving to the apartment, she told to her friend she was feeling funny. She was aiming to sit in a chair but does not remember anything. There was report of a possible seizure. Reports was about 30 seconds unresponsive associated with shakings in bilateral upper arm. The event was witnessed by the patient's daughter who is an occupational therapist. She believes patient was having seizure episode, but there was no any tongue bite, not found to be postictal, no urinary incontinence. When EMS arrived, the patient was feeling dizziness and she was seeing blue and white light. Daughter reported she was having history of seizure, but never being worked up by a physician yet. The patient has significant hx of pacemaker, quadruple bypass, and hypertension. There were no any new medications. The patient was interlocated 6 weeks ago which was functioning well. The patient has been eating and drinking well. Per family after the seizure episodes, she was short of breath, mild abdominal pain, diaphoresis, but denied any chest pain, difficulty breathing or rib pain. She did not report anywhere pain after these episodes, did not fall, but daughter reported she did have 1 episode of fall a few weeks ago. In the Emergency Room, the workup basically benign. Lab was not remarkable. Blood glucose was 158. Urine shows moderate leukocyte esterase associated with spotting. Chest x-ray has no acute disease. Head CT was done, there was no hemorrhage, mass effect, or evidence of acute territorial ischemia by CT criteria. PAST MEDICAL HISTORY: Like I mentioned in the above include quadruple bypass, pacemaker, syncope, hypertension, and dyslipidemia. FAMILY HISTORY: Not remarkable, SOCIAL HISTORY: Remote smoker. Denied tobacco abuse disorder. Currently, denied alcohol abuse disorder, denied illicit drug abuse. REVIEW OF SYSTEMS: The patient denied fever or chills. Currently, denied cough, sputum, shortness of breath. Denied chest pain, palpitation, lower extremity swelling. Denied facial droop, slurry speeches or local weakness. Denies skin rashes. There was some left eye mild conjunctival injections. No eye pain. No blurry visions. MEDICATIONS TAKING AT HOME: Include: 1. Tylenol 500 mg use as directed as needed. 2. Lipitor 40 mg p.o. q.a.m. 3. Keflex 500 mg p.o. t.i.d. 4. Vitamin D3 2000 units p.o. daily. 5. Ciprofloxacin eyedrops 1 drop t.i.d., bilateral eyes. 6. CoQ10 200 mg p.o. b.i.d. 7. Docusate 100 mg every other day. 8. Hydrocortisone 2.5% topical use b.i.d. 9. Ibuprofen 200 mg p.o. use as needed as directed. 10. Lisinopril 5 mg p.o. q.a.m. 11. Nitrostat 0.4 mg use as directed p.r.n. for the chest pain. PHYSICAL EXAMINATION: VITAL SIGNS: Temperature is 36.3, pulse 81, respiration rate 20, blood pressure 190/97, pulse ox was 97% in room air. GENERAL: The patient is a white female, much younger than her age. She is awake, alert, and orientated, conversational, follows all commands. HEAD: Normocephalic. EYES: Pupils equal, round responds to light. EARS: Ear was normal. NOSE: Normal. NECK: Supple. No thyroid enlargement. Trachea in midline. HEART: Regular rhythm S1, S2, pacer in the left chest wall. There was no murmur. LUNGS: Bilateral lungs decreased breathing sounds. There was no wheezing, rhonchi or crackles. ABDOMEN: Soft, nontender. Bowel sound was positive. GENITOURINARY AND RECTAL: Deferred. EXTREMITIES: Bilateral lower extremity, no swelling. Homans sign was negative. Calf was nontender. SKIN: Has no rashes. NEUROLOGICAL EVALUATION: Cranial nerves II-XII was intact. There was no local deficit. No facial droop. NIH stroke scale is 0. LABORATORY STUDIES: WBC 6, hemoglobin 13, platelets 301. PT/INR 10/1. Sodium 139, potassium 3.6. BUN 14, creatinine 0.8. Blood glucose 122. Liver function test was within normal limits. Cardiac enzyme and troponin was negative. UA shows moderate leukocyte esterase. There was yeast budding. IMAGING STUDIES: Like I mentioned in the above, chest x-ray has no acute disease. Head CT has no acute disease. EKG done in the Emergency Room which shows atrial-paced rhythm, prolonged QT at 492 connected milliseconds. ASSESSMENT AND PLAN: An 89-year-old white female with the conditions see below. 1. Syncopal episode. 2. Possible seizure episode. 3. Recent pacemaker placement. 4. Possible urinary tract infection with yeast identified. 5. Dyslipidemia. 6. Accelerated hypertension with history of hypertension. 7. History of coronary artery disease, quadruple bypass. PLAN: 1. The patient obviously has syncope episode with loss of conscious, the etiology unknown, may be related to arrhythmia. The patient has a recent pacemaker. I will interlocate the pacemaker if not done yet. 2. Other differential diagnosis include cerebrovascular accident, but the patient currently dose not have any deficits. NIH stroke scale was zero. 3. Regarding to possible seizure activities. Family reported history of episode of seizure many months ago, never had evaluations. One daughter at the bedside witnessed the seizure. She reported this is real seizure and lasting about 30 seconds. I believe this is very important information. Because it is observed under professional witness. I will order EEG. Not order MRI because patient has pacemaker. We will give Keppra first dose now. Request admission to the tele monitor, check cardiac enzyme, troponin x2 sets more. Cardiology consult, neurology consult. Like I mentioned, interlocation of pacemaker if not done yet. 4. The patient has significant history of carotid artery occlusions, which may be the cause of syncope. I will check the carotid Doppler ultrasound to further evaluate which may contribute to the syncope events. 5. The patient has accelerated hypertension, will give the hydralazine as needed. Like I mentioned, we will treat possible yeast UTI. Discussed with patient and patient's family at bedside about the care plan and I answered all the questions. The patient has 2 daughters at the bedside, one is occupational professional and another one is assistant finance director. The patient is awake, alert, and orientated. She requests do not resuscitation. JUAN
[2016-11-23] MEDS: FLUCONAZOLE 100 MG TAB PO SCH (20:47)
[2016-11-23] MEDS: LEVETIRACETAM 500 MG TAB PO SCH (20:50)
[2016-11-23] MEDS ORDERED: ENOXAPARIN 40 MG/0.4 ML SYR SC SCH (21:00)
[2016-11-23] MEDS ORDERED: NON-FORMULARY MEDICATION (Coenzyme Q10 (Ubidecarenone) (Co Q10) 200 MG) PO SCH (21:00)
[2016-11-23] MEDS: CIPROFLOXACIN HCL 0.3% OP SOLN 2.5 ML BTL OP SCH (21:00)
[2016-11-23] MEDS: HYDROCORTISONE HC 2.5% CRM 30GM TUBE EXT SCH (21:00)
[2016-11-23 23:22] VITALS: BP 128/72; PULSE 83; TEMP 36.6; O2SAT 96
[2016-11-24] VITALS (7 sets, daily range): BP systolic 123–170; BP diastolic 63–93; PULSE 76–87; TEMP 36.5–36.8; O2SAT 95–97
[2016-11-24 01:04] LABS: CKMB/CK RATIO 2.5 (0-3.0)
--- NOTE | 2016-11-24 07:35 | DIAGNOSTIC IMAGING REPORT ---
CAROTID ARTERY ULTRASOUND CLINICAL HISTORY: Syncope history of carotid artery occlusion. COMPARISON STUDY: Carotid ultrasound October 11, 2015. TECHNIQUE: Real-time, grayscale, and color Doppler sonography of the carotid and vertebral arteries was performed. Images were viewed in the transverse and longitudinal planes. FINDINGS: There is moderate atherosclerotic plaque present within the distal right common carotid artery and proximal right internal carotid artery.. Velocity measurements are listed below. COMMON CAROTID PEAK SYSTOLIC VELOCITY (CM/S): RIGHT 38 LEFT 47 ICA PEAK SYSTOLIC VELOCITY (CM/S): RIGHT 56 LEFT 47 Systolic ratios between the internal to common carotid arteries are normal. Antegrade flow is seen in the vertebral arteries. The external carotid arteries are patent. An elevated peak systolic velocity within the right external carotid artery of 184 cm/s may represent a hemodynamically significant stenosis. This was present on prior exam. Blood pressure in the right arm measured 147/84. Blood pressure in the left arm measured 157/89. IMPRESSION: No evidence of a hemodynamically significant stenosis within the bilateral internal carotid arteries. Electronically signed by: Wily Torre M.D. 11/24/2016 7:34 AM Dictated Date/Time: 11/24/2016 7:31 AM
[2016-11-24 07:51] LABS: CKMB/CK RATIO 3.6 (0-3.0)
[2016-11-24] MEDS: CIPROFLOXACIN HCL 0.3% OP SOLN 2.5 ML BTL OP SCH ×2 (07:57→14:04)
[2016-11-24] MEDS: LEVETIRACETAM 500 MG TAB PO SCH (07:58)
[2016-11-24] MEDS: HYDROCORTISONE HC 2.5% CRM 30GM TUBE EXT SCH (07:59)
[2016-11-24] MEDS: FLUCONAZOLE 100 MG TAB PO SCH (07:59)
[2016-11-24] MEDS ORDERED: LISINOPRIL 5 MG TAB PO SCH (09:00)
[2016-11-24] MEDS ORDERED: ATORVASTATIN 40 MG TAB PO SCH (09:00)
[2016-11-24] MEDS ORDERED: DOCUSATE SODIUM 100 MG CAP PO SCH (09:00)
[2016-11-24] MEDS ORDERED: PANTOprazole SOD 40 MG TAB PO SCH (09:00)
[2016-11-24] MEDS ORDERED: CHOLECALCIFEROL 1000 INTER.UNIT TAB PO SCH (09:00)
--- NOTE | 2016-11-24 09:36 | ECHOCARDIOGRAM REPORT ---
*NOTICE TO RECEIVING [employer] This information is strictly Confidential and protected under [place] law. [place] law prohibits you from making any further disclosure of this information unless further disclosure is expressly permitted by the written consent of the person to whom it pertains or is authorized by law. A general authorization for the release of medical or other information is not sufficient for this purpose. Hospital accepts no responsibility if the information is made available to any other person, INCLUDING THE PATIENT. Interpretation Summary * Name: RONEN ALVARADO Study Date: 11/24/2016 07:00 AM BP: 123/78 mmHg * Patient Location: C.2T\S\S235\S\1 HR: 77 * : 1925 (M/d/yyyy) Gender: Female Height: 61 in * Age: 89 yrs Ethnicity: CA Weight: 147 lb * Ordering Physician: Pravin Walters * Referring Physician: Steve Hurtado * Performed By: Venus Morris RCS * * Reason For Study: SYNCOPE AND POSSIBLE PE * BSA: 1.7 m2 * -- Conclusions -- * 1. Small LV cavity size, mild concentric LVH with sigmoid septum. * 2. Normal LV systolic function. LVEF 60-65%. No regional wall motion abnormalities. * 3. Normal RV size, borderline RV function. * 4. Grade I diastolic dysfunction. * 5. Borderline BRITTNEY. No significant LVOT/intracavitary gradient. * 6. Normal estimated RVSP. * 7. No prior studies for comparison. Procedure Details * A complete two-dimensional transthoracic echocardiogram was performed (2D, M-mode, Doppler and color flow Doppler). Left Ventricle * The left ventricular cavity is small. * There is mild concentric left ventricular hypertrophy. * The basal septum is thickened and angulated consistent with sigmoid septum. * Ejection Fraction = 60-65%. * No regional wall motion abnormalities noted. Right Ventricle * The right ventricle is grossly normal size. * There is a pacemaker lead in the right ventricle. * The right ventricular systolic function is borderline reduced. Atria * The left atrial size is normal. * Right atrial size is normal. Mitral Valve * The mitral valve is grossly normal. * There is no mitral valve stenosis. * There is trace mitral regurgitation. Tricuspid Valve * The tricuspid valve is not well visualized, but is grossly normal. * There is no tricuspid stenosis. * There is trace tricuspid regurgitation. * Right ventricular systolic pressure is normal. Aortic Valve * Aortic valve sclerosis mild, without significant aortic valvular stenosis. * No hemodynamically significant valvular aortic stenosis. * There is no significant aortic regurgitation. Pulmonic Valve * The pulmonary valve is inadequately visualized, but the Doppler data is adequate for interpretation. * Pulmonic stenosis is absent. * There is no significant pulmonary regurgitation. Great Vessels * The aortic root and proximal ascending aorta are normal sized. Pericardium/Pleural * There is no pericardial effusion. Great Vessels * IVC < 2.1 cm, <50% change with respiration. Estimated RA 8 mmHg. Left Ventricular Diastolic Function * Grade I diastolic dysfunction, (abnormal relaxation pattern). MMode 2D Measurements and Calculations IVSd 1.1 cm IVSs 1.5 cm LVIDd 4.1 cm LVIDs 3.1 cm LVPWd 1.3 cm LVPWs 1.3 cm IVS/LVPW 0.88 FS 22.9 % EDV(Teich) 73.3 ml ESV(Teich) 39.3 ml EF(Teich) 46.4 % EDV(cubed) 67.8 ml ESV(cubed) 31.1 ml EF(cubed) 54.1 % % IVS thick 36.0 % % LVPW thick 4.2 % LV mass(C)d 167.9 grams LV mass(C)dI 101.3 grams/m\S\2 LV mass(C)s 152.1 grams LV mass(C)sI 91.7 grams/m\S\2 SV(Teich) 34.0 ml SI(Teich) 20.5 ml/m\S\2 SV(cubed) 36.7 ml SI(cubed) 22.2 ml/m\S\2 Ao root diam 3.3 cm Ao root area 8.4 cm\S\2 LA dimension 3.4 cm LA/Ao 1.0 Doppler Measurements and Calculations MV E max brigid 34.5 cm/sec MV A max brigid 99.8 cm/sec MV E/A 0.35 MV dec time 0.09 sec Ao V2 max 143.8 cm/sec Ao max PG 8.3 mmHg Ao max PG (full) 6.8 mmHg LV V1 max PG 1.4 mmHg LV V1 max 59.9 cm/sec PA V2 max 65.9 cm/sec PA max PG 1.7 mmHg TR max brigid 234.2 cm/sec
--- NOTE | 2016-11-24 10:22 | EEG Procedure Note ---
EEG Procedure Note Date of Service Nov 24, 2016. Start / End Times Start Time: 9:28 AM End Time: 9:48 AM Referring Physician Pravin Walters History This is a 89-year-old female with syncope. EEG for further evaluation of possible seizure etiology. Home Medication List Scheduled Atorvastatin (Lipitor), 40 MG PO QAM Cephalexin Monohydrate (Keflex), 500 MG PO TID Cholecalciferol (Vitamin D3), 2,000 UNIT PO DAILY Ciprofloxacin Hcl (Ophth) (Ciloxan Oph), 1 DROPS OP TID Coenzyme Q10 (Ubidecarenone) (Co Q10), 200 MG PO BID Docusate Sodium (Stool Softener), 100 MG PO Q2D Hydrocortisone 2.5% (Rectal) (Anusol-Hc 2.5%), 1 APPLN TOP BID Ibuprofen (Advil), 200 MG PO DIRECTED Lisinopril (Zestril), 5 MG PO QAM Nitroglycerin (Nitrostat), 0.4 MG UT PRN Scheduled PRN Acetaminophen (Tylenol), 500 MG PO UD PRN for Pain or Fever Inpatient Medication List Current Inpatient Medications Medications (Trade) Dose Ordered Sig/Brandon Route Start Time Stop Time Status Last Admin Dose Admin Enoxaparin Sodium (Lovenox Inj) 40 mg DAILY@2100 SC 11/23/16 21:00 12/23/16 20:59 11/23/16 20:53 40 MG Acetaminophen (Tylenol Tab) 650 mg Q4H PRN PO 11/23/16 18:45 12/23/16 18:44 Al Hydrox/Mg Hydrox/Simethicone (Maalox Max Susp) 15 ml Q4H PRN PO 11/23/16 18:45 12/23/16 18:44 Magnesium Hydroxide (Milk Of Magnesia Susp) 30 ml Q12H PRN PO 11/23/16 18:45 12/23/16 18:44 Zolpidem Tartrate (Ambien Tab) 5 mg HSZ PRN PO 11/23/16 18:45 12/23/16 18:44 Ondansetron HCl (Zofran Inj) 4 mg Q6H PRN IV 11/23/16 18:45 12/23/16 18:44 Polyethylene (Miralax Powder Packet) 17 gm DAILY PRN PO 11/23/16 18:45 12/23/16 18:44 Levetiracetam (Keppra Tab) 500 mg BID PO 11/23/16 21:00 12/23/16 20:59 11/24/16 07:58 500 MG Acetaminophen (Tylenol Tab) 500 mg Q6H PRN PO 11/23/16 18:45 12/23/16 18:44 Atorvastatin Calcium (Lipitor Tab) 40 mg QAM PO 11/24/16 09:00 12/24/16 08:59 11/24/16 07:59 40 MG Ciprofloxacin HCl (Ciprofloxacin 0.3% Op Soln) 1 drops TID OP 11/23/16 21:00 12/03/16 20:59 11/24/16 07:57 1 DROPS Docusate Sodium (coLACE CAP) 100 mg Q2D PO 11/24/16 09:00 12/24/16 08:59 11/24/16 07:58 100 MG Hydrocortisone (Proctozone Hc 2.5% Crm) 1 appln BID EXT 11/23/16 21:00 12/23/16 20:59 11/24/16 07:59 1 APPLN Lisinopril (Zestril Tab) 5 mg QAM PO 11/24/16 09:00 12/24/16 08:59 Nitroglycerin (Nitrostat Tab) 0.4 mg UD PRN UT 11/23/16 18:45 12/23/16 18:44 Cholecalciferol (Vitamin D Tab) 2,000 inter.unit DAILY PO 11/24/16 09:00 12/24/16 08:59 11/24/16 07:58 2,000 INTER.UNIT Pantoprazole Sodium (Protonix Tab) 40 mg QAM PO 11/24/16 09:00 12/24/16 08:59 11/24/16 09:31 40 MG Fluconazole (Diflucan Tab) 100 mg QAM PO 11/23/16 20:00 12/03/16 19:59 11/24/16 07:59 100 MG Description This is a 21 electrode EEG with a single channel dedicated to limited EKG. The electrodes were placed in accordance with the International 10-20 system. At the start of the recording the patient was in an awake state. Background was well organized and composed of symmetric mixed alpha and beta frequencies. There was a symmetric well-formed moderate amplitude 8-9 Hz posterior dominant rhythm that was reactive to eye opening and closure. Hyperventilation was not done. Intermittent photic stimulation at various frequencies produced no abnormalities. Sleep was indicated by vertex waves and symmetric sleep spindles. Interpretation This is a normal awake and asleep routine EEG. There was no electrographic seizures or epileptiform discharges. Clinical Correlation A normal EEG does not rule out epilepsy if there is a strong clinical suspicion.
--- NOTE | 2016-11-24 11:00 | Neurology Consultation ---
Neurology Consultation Date of Consultation: Nov 24, 2016. Attending Physician: Jason Cavazos D.O. Primary Care Physician: Steve Hurtado Reason for Consultation: Patient is an 89-year-old, who was asked to see at the request of Dr. Walters for neurologic consultation regarding syncope and possible seizures. History of Present Illness Source: patient, family, caregiver, clinic records, hospital records Patient tells me that she's had episodes of passing out since after her coronary artery bypass grafting in 2004. This started about 7-8 years ago when she was living in [place] and has been occurring intermittently since. These passing out episodes always occur when she is up walking around and never when she is sitting or laying down. She will always get a warning of lightheadedness and sometimes gets blurry vision or flashing lights. She can be out for 10-30 seconds and then is back to normal. She has never had a history of seizures. She has no history of stroke or significant head trauma. In July of this year, a cardiac pacemaker was placed for significant episodes of bradycardia into the 30s. She had no other cardiac dysrhythmia identified. The patient claims that since the pacemaker was put in, she has had less episodes. She also knows that when she takes lisinopril at night she has less lightheadedness and events then if she takes it in the morning. Sometime in late August she had a syncopal episode that was typical. She was doing fairly well until yesterday, although she was seen in emergency room November 22 for left eye infection. There was no sign of shingles and she is taking eyedrops and antibiotics for her eyes. She feels her eye is much better The patient got up and felt well on the morning of November 23. She went to breakfast and noted that it was warm out. Walking back from breakfast to her residence ([facility]) she got a little bit lightheaded. She has to sit down and her daughter took her inside and sat her on a chair. The patient had flashing lights and lightheaded feeling for several minutes. She had no headache or speech problems and had no weakness or numbness of the limbs. They then tried to walk or to a couch but she passed out walking with a walker. Her eyes rolled back and within a few seconds her head arched back and she was stiff in her limbs for less than 30 seconds. She then woke up and was relaxed sitting up in a chair. She had some pickups for a few minutes and then was back to baseline. She arrived at the emergency room at 1213 hours with a temperature 36.6, pulse 74, respiratory rate 19, blood pressure 136/66, and O2 saturation 98%. She had no focal abnormalities or encephalopathy. CT scan of the head showed no acute changes. Chest x-ray showed cardiomegaly and the pacemaker with no acute findings. Echocardiogram was largely unremarkable. Carotid ultrasound showed no significant stenoses. CBC and chem profile were unremarkable except for glucose of 122. TSH was normal at 1.7 and she has been afebrile. I spoke to the patient's daughter regarding the event November 23. She also filled in some other details of her history. 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 She underwent a left carotid endarterectomy in [place] just prior to 2009. Carotid ultrasound in 2013 was unremarkable bilaterally. Post scoliosis surgery in 2007 Post bilateral cataract repair, breast reduction, hysterectomy, left knee surgery Family History Mother age 88 and had heart disease. Father at age 92. Pernicious anemia and history of syncope last couple of years of his life. Social History Patient quit cigarette smoking in 1971. She has one scotch per day or, if it is hot, a beer. 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 Smoking Status: Former smoker Smokeless Tobacco Use: No Alcohol Use: occasionally Drug Use: none Marital Status: Housing Status: assisted living Occupation Status: retired Allergies Coded Allergies: Penicillins (Verified Allergy, Unknown, UNKNOWN, 11/23/16) Current Inpatient Medications Current Inpatient Medications Medications (Trade) Dose Ordered Sig/Brandon Route Start Time Stop Time Status Last Admin Dose Admin Enoxaparin Sodium (Lovenox Inj) 40 mg DAILY@2100 SC 8/20/17 21:00 12/23/16 20:59 11/23/16 20:53 40 MG Acetaminophen (Tylenol Tab) 650 mg Q4H PRN PO 11/23/16 18:45 12/23/16 18:44 Al Hydrox/Mg Hydrox/Simethicone (Maalox Max Susp) 15 ml Q4H PRN PO 11/23/16 18:45 12/23/16 18:44 11/24/16 10:23 15 ML Magnesium Hydroxide (Milk Of Magnesia Susp) 30 ml Q12H PRN PO 11/23/16 18:45 12/23/16 18:44 Zolpidem Tartrate (Ambien Tab) 5 mg HSZ PRN PO 11/23/16 18:45 12/23/16 18:44 Ondansetron HCl (Zofran Inj) 4 mg Q6H PRN IV 11/23/16 18:45 12/23/16 18:44 Polyethylene (Miralax Powder Packet) 17 gm DAILY PRN PO 11/23/16 18:45 12/23/16 18:44 Levetiracetam (Keppra Tab) 500 mg BID PO 11/23/16 21:00 12/23/16 20:59 11/24/16 07:58 500 MG Acetaminophen (Tylenol Tab) 500 mg Q6H PRN PO 11/23/16 18:45 12/23/16 18:44 Atorvastatin Calcium (Lipitor Tab) 40 mg QAM PO 11/24/16 09:00 12/24/16 08:59 11/24/16 07:59 40 MG Ciprofloxacin HCl (Ciprofloxacin 0.3% Op Soln) 1 drops TID OP 11/23/16 21:00 12/03/16 20:59 11/24/16 07:57 1 DROPS Docusate Sodium (coLACE CAP) 100 mg Q2D PO 11/24/16 09:00 12/24/16 08:59 11/24/16 07:58 100 MG Hydrocortisone (Proctozone Hc 2.5% Crm) 1 appln BID EXT 11/23/16 21:00 12/23/16 20:59 11/24/16 07:59 1 APPLN Lisinopril (Zestril Tab) 5 mg QAM PO 11/24/16 09:00 12/24/16 08:59 Nitroglycerin (Nitrostat Tab) 0.4 mg UD PRN UT 11/23/16 18:45 12/23/16 18:44 Cholecalciferol (Vitamin D Tab) 2,000 inter.unit DAILY PO 11/24/16 09:00 12/24/16 08:59 11/24/16 07:58 2,000 INTER.UNIT Pantoprazole Sodium (Protonix Tab) 40 mg QAM PO 11/24/16 09:00 12/24/16 08:59 11/24/16 09:31 40 MG Fluconazole (Diflucan Tab) 100 mg QAM PO 11/23/16 20:00 12/03/16 19:59 11/24/16 07:59 100 MG Review of Systems Constitutional: No weakness, No fatigue Eyes: No worsening of vision, No diplopia ENT: No hearing loss, No sore throat Respiratory: No cough, No shortness of breath Cardiovascular: No chest pain, No palpitations Abdomen: No pain, No nausea Musculoskeletal: No joint pain, No muscle pain Genitourinary - Female: No dysuria, No urinary incontinence Neurologic: + balance problems, No memory loss, No weakness, No numbness/ tingling, No vertigo Psychiatric: No depression symptoms, No anxiety Endocrine: No fatigue Hematologic / Lymphatic: No abnormal bleeding/bruising Integumentary: No rash Allergic / Immunologic: No hives Physical Exam Vital Signs (Past 24 Hrs): Date Time Temp Pulse Resp B/P (MAP) Pulse Ox O2 Delivery O2 Flow Rate FiO2 11/24/16 08:05 36.5 76 18 124/63 (83) 96 11/24/16 08:00 97 Room Air 11/24/16 04:00 Room Air 11/24/16 03:15 36.7 82 18 123/78 (93) 97 Room Air 11/23/16 23:59 Room Air 11/23/16 23:22 36.6 83 16 128/72 (90) 96 Room Air 11/23/16 20:00 Room Air 11/23/16 19:56 36.3 79 18 179/82 Room Air 11/23/16 19:25 81 18 171/94 100 Room Air 11/23/16 17:42 81 20 190/97 97 Room Air 11/23/16 17:00 73 22 172/92 96 Room Air 11/23/16 16:55 78 11/23/16 14:26 65 18 192/93 95 Room Air 11/23/16 14:20 73 19 185/90 98 Room Air 65 192/93 72 158/89 11/23/16 12:36 97 Room Air 11/23/16 12:18 63 11/23/16 12:13 36.6 74 19 136/66 98 Room Air Patient is right-handed. The patient is awake and alert. Speech is normal without aphasia or dysarthria. Mentation and thought processes are intact with orientation and normal fund of knowledge. Mood and affect are normal and appropriate. Appearance and grooming are normal. The discs are sharp with positive venous pulsations. There are no exudates, hemorrhages, or blood vessel changes seen. Pupils are 3mm bilaterally and reactive to light. Extraocular eye muscles are intact without nystagmus. Visual acuity and visual nesbitt seem normal grossly to confrontation. There are no deficits to sensation of the face bilaterally. Corneal reflexes are positive bilaterally. Facial strength and symmetry is normal bilaterally. Hearing seems intact grossly to voice and finger rub. Palate moves well without asymmetry. There is normal sternocleidomastoid and trapezius strength bilaterally. Tongue is midline with good strength bilaterally. Neck is with full range of motion without discomfort. There are no cervical bruits. There are no cranial or ocular bruits. Heart is without murmur. Cervical, thoracic, and lumbar spine are nontender to palpation. Gait is cautious and she uses a walker for support. Stance is normal, eyes open. With outstretched arms there is no drift. There are no resting, postural, or action tremors. There is no ataxia with [id number] testing. There is good facility in the hands. There are no abnormal involuntary movements noted. Motor strength is 5/5 diffusely in the arms bilaterally including deltoids, biceps, brachioradialis, wrist flexors and extensors, track announcer, and intrinsic hand muscles. Motor strength is 5/5 diffusely in the legs bilaterally including hip flexors, quadriceps, hamstring, gastrocnemius, tibialis anterior, tibialis posterior, and peroneii muscles bilaterally. Toe extensors are normal and there is good bulk in the extensor digitorum brevis muscle bilaterally. The limbs have good tone without rigidity or spasticity, and there is no atrophy noted. Muscle bulk is normal, there is no tenderness, no myotonia noted to percussion, and no fasciculations seen. Sensory examination is intact to pin and touch throughout all four limbs. Reflexes are 1/4 in the biceps, triceps, brachioradialis, quadriceps, and Achilles tendons bilaterally. Toes are downgoing with plantar stimulation bilaterally. Peripheral pulses are present and of normal quality distally in all four limbs. There is no peripheral edema noted. Laboratory Results Past 24 Hours: 11/23/16 14:55 Red Blood Count 4.20, Mean Corpuscular Volume 96.4, Mean Corpuscular Hemoglobin 33.1, Mean Corpuscular Hemoglobin Concent 34.3, Mean Platelet Volume 9.9, Neutrophils (%) (Auto) 78.6, Lymphocytes (%) (Auto) 14.6, Monocytes (%) (Auto) 5.9, Eosinophils (%) (Auto) 0.5, Basophils (%) (Auto) 0.2, Neutrophils # (Auto) 4.78, Lymphocytes # (Auto) 0.89, Monocytes # (Auto) 0.36, Eosinophils # (Auto) 0.03, Basophils # (Auto) 0.01 11/23/16 14:55 Test 11/23/16 13:23 11/23/16 14:55 11/23/16 15:14 11/24/16 06:23 Bedside Glucose 158 mg/dl (70-90) White Blood Count 6.08 K/uL (4.8-10.8) Red Blood Count 4.20 M/uL (4.2-5.4) Hemoglobin 13.9 g/dL (12.0-16.0) Hematocrit 40.5 % (37-47) Mean Corpuscular Volume 96.4 fL (80-100) Mean Corpuscular Hemoglobin 33.1 pg (25-34) Mean Corpuscular Hemoglobin Concent 34.3 g/dl (32-36) Platelet Count 301 K/uL (130-400) Mean Platelet Volume 9.9 fL (7.4-10.4) Neutrophils (%) (Auto) 78.6 % Lymphocytes (%) (Auto) 14.6 % Monocytes (%) (Auto) 5.9 % Eosinophils (%) (Auto) 0.5 % Basophils (%) (Auto) 0.2 % Neutrophils # (Auto) 4.78 K/uL (1.4-6.5) Lymphocytes # (Auto) 0.89 K/uL (1.2-3.4) Monocytes # (Auto) 0.36 K/uL (0.11-0.59) Eosinophils # (Auto) 0.03 K/uL (0-0.5) Basophils # (Auto) 0.01 K/uL (0-0.2) RDW Standard Deviation 50.3 fL (36.4-46.3) RDW Coefficient of Variation 14.3 % (11.5-14.5) Immature Granulocyte % (Auto) 0.2 % Immature Granulocyte # (Auto) 0.01 K/uL (0.00-0.02) Prothrombin Time 10.2 SECONDS (9.0-12.0) Prothromb Time International Ratio 1.0 (0.9-1.1) Activated Partial Thromboplast Time 25.2 SECONDS (21.0-31.0) Partial Thromboplastin Ratio 1.0 Anion Gap 7.0 mmol/L (3-11) Est Creatinine Clear Calc Drug Dose 41.7 ml/min Estimated GFR () 75.8 Estimated GFR (Non- 65.4 BUN/Creatinine Ratio 17.7 (10-20) Calcium Level 8.8 mg/dl (8.5-10.1) Phosphorus Level 3.4 mg/dl (2.5-4.9) Magnesium Level 2.3 mg/dl (1.8-2.4) Total Bilirubin 0.4 mg/dl (0.2-1) Direct Bilirubin 0.1 mg/dl (0-0.2) Aspartate Amino Transf (AST/SGOT) 22 U/L (15-37) Alanine Aminotransferase (ALT/SGPT) 24 U/L (12-78) Alkaline Phosphatase 62 U/L (45-117) Total Protein 8.8 gm/dl (6.4-8.2) Albumin 3.8 gm/dl (3.4-5.0) Thyroid Stimulating Hormone (TSH) 1.730 uIu/ml (0.300-4.500) Urine Color YELLOW Urine Appearance CLOUDY (CLEAR) Urine pH 8.5 (4.5-7.5) Urine Specific Hatley 1.013 (1.000-1.030) Urine Protein NEG (NEG) Urine Glucose (UA) NEG (NEG) Urine Ketones NEG (NEG) Urine Occult Blood NEG (NEG) Urine Nitrite NEG (NEG) Urine Bilirubin NEG (NEG) Urine Urobilinogen NEG (NEG) Urine Leukocyte Esterase MODERATE (NEG) Urine WBC (Auto) 5-10 /hpf (0-5) Urine RBC (Auto) 5-10 /hpf (0-4) Urine Hyaline Casts (Auto) 1-5 /lpf (0-5) Urine Epithelial Cells (Auto) >30 /lpf (0-5) Urine Bacteria (Auto) NEG (NEG) Urine Yeast (Auto) BUDDING (NONE PRSENT) Total Creatine Kinase 58 U/L (26-192) Creatine Kinase MB 2.1 ng/ml (0.5-3.6) Creatine Kinase MB Ratio 3.6 (0-3.0) Troponin I < 0.015 ng/ml (0-0.045) Date/Time Source Procedure Growth Status 11/24/16 00:00 Nasal MRSA DNA Surveillance Screen - Final Specimen Negative for MRSA by DNA Probe Complete Impression 1. Syncope. 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 I do not believe she has a primary seizure disorder. I believe her event yesterday was a secondary seizure. She was kept in an upright position the entire time was never laid down. There is no sign of stroke and there are no focal neurologic findings, encephalopathy, or meningeal signs on examination today. She seems back to baseline. She has a pacemaker so not sure that a cardiac dysrhythmia is present. She does have a history of symptomatic bradycardia however. 2. History of bilateral carotid stenosis to 70% in the past post left carotid endarterectomy. Most recent carotid ultrasounds have been unremarkable with no significant stenoses. Plan 1. Awaiting EEG results from this morning. 2. I see no need for long-term anticonvulsants as this patient. In addition, levetiracetam can be associated with lethargy and confusion in the elderly. I would discontinue levetiracetam, however, we can wait until the EEG report is finalized. 3. Avoid over correction of blood pressure. She may do better with a little higher blood pressure to avoid hypotensive events and orthostasis. 4. I see no need for additional neurologic testing or treatment at this time. Spoke with Dr Cavazos regarding the case including differential diagnosis and treatment options. Please contact me if I can be of further assistance on this case.
[2016-11-24] MEDS ORDERED: DFL100 PO ×2 (12:49)
--- NOTE | 2016-11-24 13:01 | Discharge Instructions ---
Discharge Instructions Date of Service Nov 24, 2016. Admission Reason for Admission: Syncope Discharge Discharge Diagnosis / Problem: Syncope, likely vasovagal Discharge Goals Goal(s): Improve function, Increase independence Activity Recommendations Activity Limitations: resume your previous activity Lifting Limitations: none Exercise/Sports Limitations: as tolerated May Resume Sexual Activity: when tolerated Shower/Bathe: no limitations . Instructions / Follow-Up Instructions / Follow-Up Medications: - DIFLUCAN: take 2 more doses for yeast in urine, no growth on culture, would only treat 3 days total as this would be uncomplicated Continue all prior medications Make an effort to drink more water to stay hydrated. Should drink at least 1.5 liters of water a day in addition to other fluids. Urine should be clear. Do not over exert yourself after eating and avoid excess time in the heat. Always transition from sitting to standing slowly and pause before walking. Neurology consult, Dr. Craft, no evidence of primary seizures. EEG was normal, do not recommend anti-epileptic medications. Cardiology consult, echocardiogram normal, slightly underdistended and recommend you drink more fluids. Troponin negative x 3, no evidence of cardiac ischemia FOLLOW UP - physician at [facility] this week Current Hospital Diet Patient's current hospital diet: AHA Diet (Heart Healthy) Discharge Diet Recommended Diet: AHA Diet (Heart Healthy) Pending Studies Studies pending at discharge: no Medical Emergencies . Who to Call and When: Medical Emergencies: If at any time you feel your situation is an emergency, please call 911 immediately. . Non-Emergent Contact Non-Emergency issues call your: Primary Care Provider Call Non-Emergent contact if: you have any medication questions . . "Provider Documentation" section prepared by Jason Cavazos. . VTE Core Measure Inpt VTE Proph given/why not?: Enoxaparin (Lovenox) [place] Drug Monitoring Program Search Results: no issues identified
[2016-11-24 13:23] LABS: CKMB/CK RATIO 2.9 (0-3.0)
--- NOTE | 2016-11-24 13:32 | CARDIOLOGY CONSULTATION ---
DATE OF CONSULTATION: 11/24/2016 CONSULTING PHYSICIAN: Dr. Walters. REASON FOR CONSULTATION: Syncope. OUTPATIENT HOTEL HOUSEMAN: Dr. Zamorano and Dr. Jaquez. HISTORY OF PRESENT ILLNESS: Mrs. Horta is a very pleasant 89-year-old woman with a history of coronary artery disease, status post 4-vessel CABG in 2004 (MEMBRENO to LAD, vein graft to second diagonal, sequential vein graft to PDA and posterolateral branch), carotid artery disease status post left carotid endarterectomy, peripheral artery disease with moderate arterial insufficiency of the left lower extremity and a prior sinus bradycardia with recurrent syncopal episodes, now status post dual chamber pacemaker, who returns with repeat syncopal event. The patient has had multiple syncopal events in the past, most notably last fall. This occurred in the setting of sinus bradycardia with heart rates are in the 40s. She eventually underwent a dual chamber pacemaker placement by Dr. Zamorano in July of this year. Since that time, she started doing well, has had some increase in her energy and had no real recurrence of syncopal events up until this weekend. The patient states she had been seen in the Emergency Department on Thursday in the setting of a red eye and questionable shingles. She was discharged home back to [facility]. The morning of admission, she had eaten a large breakfast. She [place] walking when began feeling of unwell with some mild dizziness. She got to her home, sat in the chair and reportedly passed out. She was evidently out for more than 30 seconds and had some questionable seizure like activity after that time before regaining consciousness. She denied any preceding chest pain, palpitations, or significant shortness of breath. She denied any recent other illnesses, fevers, chills or decreased p.o. intake. She was brought to the Emergency Department, where she was initially hypertensive with blood pressures to the 190s. Chest x-ray, EKG and CT scan of the head were all unremarkable. Initial troponin was negative and an interrogation of her pacemaker showed no evidence of wide complex tachycardia and no bradycardic events. Since being admitted, the patient states she feels well. She is at her baseline. Telemetry has been unremarkable. She denies any new cardiac symptoms. PAST MEDICAL HISTORY: 1. Coronary artery disease, status post 4-vessel CABG. 2. Hypertension. 3. Hyperlipidemia. 4. Peripheral artery disease. 5. Carotid artery disease status post carotid endarterectomy. 6. Sinus bradycardia, status post dual chamber pacemaker. 7. Nephrolithiasis. FAMILY HISTORY: Noncontributory. SOCIAL HISTORY: She lives at [facility]. Denies any significant alcohol or tobacco use. She previously was a newspaper photographer. HOME MEDICATIONS: Include atorvastatin 40, Coenzyme Q 200 daily, hydrocortisone suppository, lisinopril 5 mg, MiraLax, naproxen, stool softener, and vitamin D3. REVIEW OF SYSTEMS: Ten point review of systems was completed and otherwise negative unless stated in the in HPI. PHYSICAL EXAMINATION: VITAL SIGNS: Temperature 36.5, pulse 76, blood pressure 124/63, and satting 97% on room air. GENERAL: The patient appears comfortable, in no acute distress. HEENT: Sclerae anicteric. Oropharynx is clear. Mucous membranes are moist. NECK: Supple with no lymphadenopathy. LUNGS: Clear to auscultation bilaterally. CARDIAC: She has a regular rate and rhythm with no murmurs, rubs or gallops. ABDOMEN: Soft, nontender, and nondistended with positive bowel sounds. EXTREMITIES: Warm. She has no significant lower extremity edema. She has intact distal pulses. SKIN: Shows no rashes or lesions. NEUROLOGIC: Her exam is nonfocal. PSYCHIATRIC: She is alert and oriented and appropriate. LABORATORY DATA: CBC within normal limits. INR 1.0. BMP within normal limits. Creatinine of 0.8. Troponin has been negative x3. She has normal TSH. Carotid arterial duplex was normal without any hemodynamically significant stenosis. Chest x-ray showed no acute cardiopulmonary process and head CT showed no acute intracranial process. Echocardiogram was reviewed, which showed normal to hyperdynamic LV function with mild LVH and a sigmoid septum. There was borderline BRITTNEY, but no significant intracavitary or dynamic LVOT gradient. EKG shows atrially paced rhythm with T-wave inversions inferiorly, which had been seen previously. IMPRESSION AND PLAN: 1. Syncope. 2. History of coronary artery disease, status post 4-vessel coronary artery bypass grafting. 3. Sinus bradycardia, status post dual chamber pacemaker. 4. Peripheral artery disease. 5. Questionable seizure disorder. 6. LVH with sigmoid septum and borderline systolic anterior motion. The patient is with recurrent syncopal episode yesterday in this following with exertion and eating. Interrogation of her recently placed pacemaker showed no significant ventricular or bradycardic events. Review of blood work shows no evidence of cardiac injury and echocardiogram shows no significant new wall motion abnormalities to suggest ischemic event. The patient does have evidence of a small LV cavity with concentric LVH and sigmoid septum with borderline systolic anterior motion. There is no significant evidence of any dynamic intracavitary or outflow tract obstruction; however, the patient does seem to be predisposed to having potential obstruction with findings on echo. In that setting, I feel that the patient's events most likely related to either orthostasis or vasovagal event, dehydration and possible LV obstruction. In that setting, would recommend aggressive fluids at home. I do not feel any further cardiac workup is indicated at this time. Can follow up with cardiology as an outpatient. From a cardiac standpoint, okay to go on a trip planned for Thursday. Findings were discussed with Dr. Cavazos. Thank you for consultation. Thank you for allowing us to participate in the care of this patient.
--- NOTE | 2016-11-25 07:50 | Discharge Summary ---
Discharge Summary Date of Service Nov 24, 2016. Discharge Summary Admission Date: Nov 23, 2016 at 18:40 Discharge Date: Nov 24, 2016 Discharge Disposition: Home Principal Diagnosis: Syncope, likely vasovagal Problems/Secondary Diagnoses: UTI - yeast Immunizations: History of Tetanus Vaccine?: Unknown History of Pneumococcal: Unknown History of Hepatitis B Vaccine: No Procedures: EEG Echocardiogram Consultations: Cardiology Neurology Medication Reconciliation New Medications: Fluconazole (Fluconazole) 100 Mg Tab 100 MG PO QAM, #2 TAB 0 Refills Continued Medications: Acetaminophen (Tylenol) 500 Mg Tab 500 MG PO UD PRN for Pain or Fever, TAB Atorvastatin (Lipitor) 40 Mg Tab 40 MG PO QAM, TAB Cholecalciferol (Vitamin D3) 2,000 Unit Tab 2000 UNIT PO DAILY for 90 Days, #9 TAB 3 Refills Ciprofloxacin Hcl (Ophth) (Ciloxan Oph) 0.3 % Ellie 1 DROPS OP TID, #1 BTL 1 Refill Coenzyme Q10 (Ubidecarenone) (Co Q10) 50 Mg Cap 200 MG PO BID, CAP Docusate Sodium (Stool Softener) 100 Mg Cap 100 MG PO Q2D Hydrocortisone 2.5% (Rectal) (Anusol-Hc 2.5%) 2.5 % Cre 1 APPLN TOP BID for 7 Days, #30 GM 1 Refill Ibuprofen (Advil) 200 Mg Tab 200 MG PO DIRECTED, TAB Lisinopril (Zestril) 5 Mg Tab 5 MG PO QAM, TAB Nitroglycerin (Nitrostat) 0.4 Mg Sub 0.4 MG UT PRN, BTL Discontinued Medications: Cephalexin Monohydrate (Keflex) 500 Mg Cap 500 MG PO TID for 7 Days, #21 CAP Discharge Exam Patient feeling well. Recalls details of her fall. She had just finished eating a large meal outside and ambulated a far distance to her residence when she felt faint. She had been out in the sun for a long period. She lost consciousness and witnesses say she had some jerking of her arms. Discussed the case with both Dr. Crfat with neurology and Dr. Jaquez with cardiology. Dr. Craft did not see any evidence of primary seizure disorder and did not recommend starting patient on anti-epileptics. Dr. Jaquez reviewed the patient's echo and felt she was volume depleted. Discussed this with patient, discussed important of staying very well hydrated with water and to avoid excessive time in the sun, avoid walking a long distance directly after eating, pause with position changes. Prior to discharge she ambulated two laps around the RN station without any dizziness or weakness, she felt strong enough to go home. Review of Systems: Constitutional: No fever, No chills, No sweats, No weight loss, No weakness , No fatigue, No problem reported Eyes: No worsening of vision, No eye pain, No redness, No discharge, No diplopia, No problem reported ENT: No hearing loss, No unusual epistaxis, No nasal symptoms, No sore throat, No tinnitus, No dental problems, No trouble swallowing, No problem reported Respiratory: No cough, No sputum, No wheezing, No shortness of breath, No dyspnea on exertion, No dyspnea at rest, No hemoptysis, No problem reported Cardiovascular: No chest pain, No orthopnea, No PND, No edema, No claudication, No palpitations, No problem reported Abdomen: No pain, No nausea, No vomiting, No diarrhea, No constipation, No GI bleeding, No problem reported Musculoskeletal: No joint pain, No muscle pain, No swelling, No calf pain, No problem reported Genitourinary - Female: No dysuria, No urinary frequency, No urinary urgency , No urinary incontinence Neurologic: No memory loss, No paralysis, No weakness, No numbness/tingling , No vertigo, No balance problems, No problem reported Psychiatric: No depression symptoms, No anhedonism, No anxiety, No insomnia , No substance abuse, No problem reported Endocrine: No fatigue, No excessive thirst, No excessive urination, No problem reported Hematologic / Lymphatic: No abnormal bleeding/bruising, No clotting problems , No swollen lymph nodes, No night sweats, No problem reported Integumentary: No rash, No itch, No new/changing skin lesions, No color change, No bleeding, No problem reported Physical Exam: General Appearance: WD/WN, no apparent distress Eyes: normal inspection, EOMI, sclerae normal ENT: normal ENT inspection, hearing grossly normal, pharynx normal Neck: supple, no adenopathy, no JVD, trachea midline Respiratory/Chest: chest non-tender, lungs clear, normal breath sounds, no respiratory distress, no accessory muscle use Cardiovascular: regular rate, rhythm, no edema, no gallop, no JVD, no murmur , normal peripheral pulses Abdomen / GI: normal bowel sounds, non tender, soft, no organomegaly Extremities: normal inspection, no calf tenderness, normal capillary refill , no pedal edema, normal range of motion, pelvis stable Neurologic/Psychiatric: 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 Jaquez mentioned she actually appeared hypovolemic carotid US without stenosis, CT head normal Dr. Craft does not feel her jerking was primary seizure, normal EEG, no need for anti-epileptics recommend return home, instructed to stay well hydrated, stay out of the sun , pause with position changes follow up with physician at [facility] Total Time Spent: Greater than 30 minutes This includes examination of the patient, discharge planning, medication reconciliation, and communication with other providers. Discharge Instructions Please refer to the electronic Patient Visit Report (Discharge Instructions) for additional information. Follow-Up physician at [facility] Additional Copies To Steve Hurtado
== END 2016-11-24 15:55 | disposition home or self-care (01) | DRG 312 ==
LOC: EDBD 11:53 → C.EDC 11:54 → C.2T 18:40 → ENRESERV 18:59
PROVIDERS: ADMIT Hospitalist; ATTEND Internal Medicine
DX: R55 Syncope and collapse (principal); N39.0 Urinary tract infection, site not specified; I10 Essential (primary) hypertension; E78.5 Hyperlipidemia, unspecified; I73.9 Peripheral vascular disease, unspecified; I25.10 Atherosclerotic heart disease of native coronary artery without angina pectoris; Z87.891 Personal history of nicotine dependence; Z95.0 Presence of cardiac pacemaker

== ENCOUNTER → 2017-05-04 | Outpatient (CLI) | payer BC ==
[~2017-05-04] MED LIST changes: -ACET325T96 PO; -CEPH500C PO; +DFL100 PO; -LEVO1TAB35 PO; -PSYL48.59 PO
[2017-05-04 08:42] LABS: ALBUMIN 3.3 gm/dl (3.4-5.0); ALT/SGPT 30 U/L (12-78); BLOOD UREA NITROGEN 10 mg/dl (7-18); CALCIUM 9.1 mg/dl (8.5-10.1); CARBON DIOXIDE 25 mmol/L (21-32); CHOLESTEROL 202 mg/dl (0-200); CREATININE 0.71 mg/dl (0.60-1.20); GLUCOSE 91 mg/dl (70-99); POTASSIUM 3.8 mmol/L (3.5-5.1); SODIUM 138 mmol/L (136-145)
[2017-05-04 08:45] LABS: ALKALINE PHOSPHATASE 52 U/L (45-117); AST/SGOT 22 U/L (15-37); LDL CHOLESTEROL CALCULATED 94 mg/dl; TOTAL PROTEIN 8.1 gm/dl (6.4-8.2)
== END | disposition home or self-care (01) ==
LOC: C.LABFOXMH 08:13
PROVIDERS: ATTEND Internal Medicine
DX: E78.00 Pure hypercholesterolemia, unspecified (principal)